=== PATIENT | male | born 1960 | race Caucasian/White ===

== ENCOUNTER → 2021-07-19 16:50 | Outpatient (CLI) | payer OTHER, SELFPAY ==
[2021-07-20 01:25] LABS: Absolute Lymphocyte Count 1.31 X10^3/uL (0.83-4.51); Absolute Neutrophil Count 3.2 X10^3/uL (2.0-7.7); Basophil# 0.08 X10^3/uL; Basophil% 1.5 % (0-1); Eosinophil# 0.31 X10^3/uL; Eosinophils% 5.7 % (0-5); Hematocrit 40.9 % (40-54); Hemoglobin 14.3 g/dL (13.0-16.5); Lymphocyte # 1.31 X10^3/ul (0.83-4.51); Lymphocyte % 24.2 % (19-41); Mean Corpuscular Hgb 34.3 pg (27.0-32.0); Mean Corpuscular Volume 98.1 fL (80-94); Mean Platelet Vol. 9.2 fl (6.2-12.0); Monocyte# 0.51 X10^3/uL; Monocyte% 9.4 % (0-10); NRBC Flagged by Analyzer 0 % (0-5); Platelet Count 238 K/mm3 (150-450); RBC Distribution Width CV 11.7 % (11.6-14.6); Red Blood Count 4.17 M/mm3 (4.6-6.2); White Blood Count 5.4 K/mm3 (4.4-11.0)
[2021-07-20 01:43] LABS: AST(SGOT) 25 U/L (15-37); Alanine Aminotransfer ALT/SGPT 41 U/L (16-61); Alkaline Phosphatase 66 U/L (45-117); Anion Gap 7 (5-15); BUN 17 mg/dL (7-18); BUN/Creat Ratio 16.2 RATIO (10-20); Calcium,Total 8.9 mg/dL (8.5-10.1); Chloride 102 mmol/L (98-107); Cholesterol 167 mg/dL (200); Creatinine, Serum 1.05 mg/dL (0.70-1.30); EST Glomerular Filtration Rate 76 mL/min (>60); Est Glom Filt Rate - Afr Amer 92 mL/min (>60); Globulin 3.9 g/dL (2.2-4.2); Glucose 104 mg/dL (74-106); High Density Lipoprotein 56 mg/dL; PSA,Total - Annual Screen 0.66 ng/mL (0.00-4.00); Protein, Total 7.9 g/dL (6.4-8.2); Sodium Level 138 mmol/L (136-145); Triglycerides 90 mg/dL; Very Low Density Lipoprotein 18 mg/dL (5-40)
== END ==
PROVIDERS: Nurse Practitioner
DX: I10 Essential (primary) hypertension (principal); J01.00 Acute maxillary sinusitis, unspecified; R35.0 Frequency of micturition
CPT/HCPCS: 80053; 80061; 84153; 85025; G0103

== ENCOUNTER → 2022-12-06 | Outpatient (CLI) | payer OTHER, SELFPAY ==
[2022-12-06 22:03] LABS: Absolute Lymphocyte Count 1.32 X10^3/uL (0.83-4.51); Absolute Neutrophil Count 2.8 X10^3/uL (2.0-7.7); Basophil# 0.09 X10^3/uL; Basophil% 1.8 % (0-1); Eosinophil# 0.26 X10^3/uL; Eosinophils% 5.3 % (0-5); Hematocrit 43.1 % (40-54); Lymphocyte # 1.32 X10^3/ul (0.83-4.51); Lymphocyte % 26.7 % (19-41); Mean Corp Hgb Conc 34.8 g/dL (32-36); Mean Corpuscular Hgb 33.3 pg (27.0-32.0); Mean Corpuscular Volume 95.6 fL (80-94); Mean Platelet Vol. 9.1 fl (6.2-12.0); Monocyte# 0.48 X10^3/uL; Monocyte% 9.7 % (0-10); NRBC Flagged by Analyzer 0 % (0-5); Neutrophil # 2.78 X10^3/uL (2.7-7.7); Neutrophil % 56.3 % (47-70); Platelet Count 240 K/mm3 (150-450); RBC Distribution Width CV 11.5 % (11.6-14.6); RBC Distribution Width SD 39.9 fl (35.1-43.9); Red Blood Count 4.51 M/mm3 (4.6-6.2); White Blood Count 4.9 K/mm3 (4.4-11.0)
[2022-12-06 22:57] LABS: ALB/GLOB Ratio 1.1 RATIO (0.9-2.4); AST(SGOT) 32 U/L (15-37); Alanine Aminotransfer ALT/SGPT 47 U/L (16-61); Albumin, Serum 4.2 g/dL (3.2-5.0); Alkaline Phosphatase 78 U/L (45-117); Anion Gap 9 (5-15); BUN 21 mg/dL (7-18); BUN/Creat Ratio 18.9 RATIO (10-20); CRP, High Sensitivity Cardiac 0.46 mg/L; Chloride 103 mmol/L (98-107); Cholesterol 185 mg/dL (200); Creatinine, Serum 1.11 mg/dL (0.70-1.30); EST Glomerular Filtration Rate 71 mL/min (>60); Est Glom Filt Rate - Afr Amer 86 mL/min (>60); Globulin 3.8 g/dL (2.2-4.2); Glucose 109 mg/dL (74-106); High Density Lipoprotein 58 mg/dL; Potassium 3.9 mmol/L (3.5-5.1); Sodium Level 142 mmol/L (136-145); Thyroid Stim Hormone (TSH) 1.56 uIU/mL (0.358-3.74); Triglycerides 109 mg/dL; Very Low Density Lipoprotein 22 mg/dL (5-40)
[2022-12-07 09:58] LABS: Troponin-I HS 15 pg/mL (3.0-78.0)
== END | disposition home or self-care (01) ==
PROVIDERS: Visit Provider Nurse Practitioner
DX: J34.89 Other specified disorders of nose and nasal sinuses (principal); F41.9 Anxiety disorder, unspecified; R07.9 Chest pain, unspecified
CPT/HCPCS: 80053; 80061; 84443; 84484; 85025; 86141; 87070; 87077; 87186; 87205

== ENCOUNTER → 2023-03-21 | Outpatient (CLI) | payer OTHER, SELFPAY ==
[2023-03-23 08:12] LABS: Lyme Scn Total Ab w/Rflx Negative (Negative)
== END | disposition home or self-care (01) ==
PROVIDERS: Visit Provider Nurse Practitioner
DX: S40.869A Insect bite (nonvenomous) of unspecified upper arm, initial encounter (principal); W57.XXXA Bitten or stung by nonvenomous insect and other nonvenomous arthropods, initial encounter
CPT/HCPCS: 86618

== ENCOUNTER → 2025-06-02 | Outpatient (CLI) | payer OTHER, SELFPAY ==
--- OUTSIDE RECORDS SUMMARY | 2025-06-02 21:50 | XMS RPT_ITS | CCD ---
Author Organization [facility] CliniSyma Care Team Providers Care Transport Conductor Name Role Phone Rolando Avi Blanco Primary Care Provider MD Navi Benjamin Attending Provider Navi Benjamin Attending Unavailable Rolando BLADE FILER, Avi Attending Unavailable Rolando BLADE FILER, Avi Attending Unavailable Cárdenas BLIND [email or web address].CARE TEAM COORDINATOR SCHEDULER, Avi L Primary Care Provide r CÁRDENAS, AVI L Primary Care Unavailable CÁRDENAS, AVI L Primary Care Unavailable MARISOL, DONN K Referring Unavaila ble RAMANKEKERAMEL, DONN K Referring Unavaila ble CÁRDENAS, AVI L Primary Care Unavailable CÁRDENAS, AVI L Primary Care Unavailable CÁRDENAS, AVI L Primary Care Unavailable CÁRDENAS, AVI L Primary Care Unavailable CÁRDENAS, AVI L Primary Care Unavailable CÁRDENAS, AVI L Primary Care Unavailable CÁRDENAS, AVI L Primary Care Unavailable CÁRDENAS, AVI L Primary Care Unavailable CÁRDENAS, AVI L Primary Care Unavailable CÁRDENAS, AVI L Primary Care Unavailable CÁRDENAS, AVI L Primary Care Unavailable CÁRDENAS, AVI L Primary Care Unavailable CÁRDENAS, AVI L Primary Care Unavailable CÁRDENAS, AVI L Primary Care Unavailable CÁRDENAS, AVI L Primary Care Unavailable CÁRDENAS, AVI L Primary Care Unavailable CÁRDENAS, AVI L Primary Care Unavailable CÁRDENAS, AVI L Primary Care Unavailable CÁRDENAS, AVI L Primary Care Unavailable CÁRDENAS, AVI L Primary Care Unavailable CÁRDENAS, AVI Primary Care Unavailable MARISOL FRANKS, DONN Attending Unavail able CÁRDENAS, AVI Primary Care Unavailable CÁRDENAS, AVI Primary Care Unavailable MARISOL FRANKS, DONN Attending Unavail able CÁRDENAS, AVI Primary Care Unavailable CÁRDENAS, AVI Primary Care Unavailable Allergies Allergy Classification Reported Allergen(s) Allergy Type Date of Onset Reaction(s) Facility (1 source) Environmental Allergies: Uncoded; Translations: [Environmental Allergies: Uncoded] Propensity to adverse reactions (disorder) [facility] Repository Medications Current Medications Medication Drug Class(es) Dates Sig (Normalized) Sig (Original) cimetidine 200 mg oral tablet (2 sources) Histamine-2 Receptor Antagonist Start: 11-24-2020 take 1 tablet by mouth at bedtime Cimetidine (Tagamet Hb) 200 mg tablet Active 200 MG PO before meals and at bedtime November 24, 2020 1:00am doxycycline hyclate 100 mg oral capsule (3 sources) Tetracycline-clas s Drug Start: 03-21-2023 take 100 mg by mouth twice daily Doxycycline Hyclate Active 100 MG PO TWICE A DAY March 21, 2023 12:00am Start: 11-24-2020 End: 07-19-2021 take 100 mg by mouth twice daily Doxycycline Hyclate Discontinued 100 MG PO TWICE A DAY November 24, 2020 1:00am July 19, 2021 5:13pm hydrOXYzine hydrochloride 10 mg oral tablet (2 sources) Antihistamine Start: 12-06-2022 take 10 mg by mouth three to four times daily Hydroxyzine Hcl Active 10 MG PO 3 to 4 times per day 45 December 06, 2022 1:00am meclizine hydrochloride 12.5 mg oral tablet (2 sources) Antiemetic Start: 03-29-2022 take 12.5 mg by mouth three times daily Meclizine Active 12.5 MG PO THREE TIMES A DAY 60 March 29, 2022 12:00am melatonin 10 mg oral capsule (2 sources) Start: 01-20-2019 take 10 mg by mouth at bedtime Melatonin Active 10 MG PO BEDTIME January 20, 2019 12:00am Mupirocin (2 sources) RNA Synthetase Inhibitor Antibacterial Start: 12-07-2022 Mupirocin Active 1 APPLIC TOPICAL THREE TIMES A DAY December 07, 2022 1:00am Start: 12-07-2022 Mupirocin Acti ve 1 APPLIC TOPICAL THREE TIMES A DAY December 07, 2022 12:00am Completed/Discontinued Medications Medication Drug Class(es) Dates Sig (Normalized) Sig (Original) ALPRAZolam 0.5 mg oral tablet (14 sources) Benzodiazepine Start: 01-20-2019 End: 09-04-2022 take 0.5 mg by mouth twice daily Alprazolam Discontinued 0.5 MG PO TWICE A DAY 60 January 30, 2022 5:42pm September 04, 2022 5:28pm amLODIPine 5 mg oral tablet (8 sources) Dihydropyridine Calcium Channel Óscar Start: 01-20-2019 End: 01-30-2022 take 5 mg by mouth once daily Amlodipine Discontinued 5 MG PO DAILY July 19, 2021 5:14pm January 30, 2022 5:43pm amoxicillin 875 mg / clavulanate 125 mg oral tablet (14 sources) Penicillin-class Antibacterial Start: 11-20-2022 End: 03-22-2023 take 1 tablet by mouth twice daily Amoxicillin-Pot Clavulanate Discontinued 1 TABLET PO TWICE A DAY November 20, 2022 1:00am March 22, 2023 12:10pm Start: 05-15-2022 End: 09-04-2022 take 1 tablet by mouth twice daily Amoxicillin-Pot Clavulanate Discontinued 1 TABLET PO TWICE A DAY May 15, 2022 12:00am September 04, 2022 5:27pm Start: 05-23-2021 End: 03-29-2022 take 1 tablet by mouth twice daily Amoxicillin-Pot Clavulanate Discontinued 1 TABLET PO TWICE A DAY January 30, 2022 5:42pm March 29, 2022 6:42pm Start: 09-19-2019 End: 06-29-2020 take 1 tablet by mouth twice daily Amoxicillin-Pot Clavulanate Discontinued 1 TABLET PO TWICE A DAY September 19, 2019 1:00am June 29, 2020 6:16pm Start: 01-20-2019 End: 09-19-2019 take 1 tablet by mouth twice daily Amoxicillin-Pot Clavulanate Discontinued 1 TABLET PO TWICE A DAY January 20, 2019 12:00am September 19, 2019 5:36pm atorvastatin 10 mg oral tablet (8 sources) HMG-CoA Reductase Inhibitor Start: 03-13-2019 End: 01-30-2022 Atorvastatin Discontinued 10 MG PO .3 x a week 36 90 July 19, 2021 5:14pm January 30, 2022 5:43pm benzonatate 200 mg oral capsule (2 sources) Non-narcotic Antitussive Start: 01-20-2019 End: 09-19-2019 take 200 mg by mouth three times daily Benzonatate Discontinued 200 MG PO THREE TIMES A DAY 60 January 20, 2019 12:00am September 19, 2019 5:36pm cefuroxime 500 mg oral tablet (2 sources) Cephalosporin Antibacterial Start: 03-29-2022 End: 05-15-2022 take 500 mg by mouth twice daily Cefuroxime Axetil Discontinued 500 MG PO TWICE A DAY 20 March 29, 2022 12:00am May 15, 2022 3:27pm lisinopril 10 mg oral tablet (8 sources) Angiotensin Converting Enzyme Inhibitor Start: 01-20-2019 End: 01-30-2022 take 10 mg by mouth once daily Lisinopril Discontinued 10 MG PO DAILY 90 July 19, 2021 5:14pm January 30, 2022 5:43pm oseltamivir 75 mg oral capsule (2 sources) Neuraminidase Inhibitor Start: 01-20-2019 End: 01-25-2019 take 75 mg by mouth twice daily Oseltamivir Discontinued 75 MG PO TWICE A DAY 10 January 20, 2019 12:00am January 25, 2019 12:11am predniSONE 10 mg oral tablet (2 sources) Start: 05-13-2019 End: 05-17-2019 Prednisone Discontinued 20 MG PO TWICE A DAY 30 May 13, 2019 12:00am May 17, 2019 12:07am 2 po bid 4D,1 po bid for 4 D, 1 po qd for 4 D 1/2 po qd for 2 days promethazine hydrochloride 12.5 mg oral tablet (8 sources) Phenothiazine Start: 01-20-2019 End: 11-20-2022 take 12.5 mg by mouth every six hours Promethazine Discontinued 12.5 MG PO EVERY 6 HOURS 60 May 15, 2022 3:30pm November 20, 2022 6:08pm Problems Active Problems Problem Classification Problem Date Documented Date Episodic/Chronic Anxiety disorders (2 sources) Anxiety; Translations: [Anxiety disorder, unspecified] 03-13-2019 Chronic Chronic obstructive pulmonary disease and bronchiectasis (2 sources) Bronchitis; Translations: [Bronchitis, not specified as acute or chronic] 11-24-2020 Episodic Conditions associated with dizziness or vertigo (2 sources) Dizziness; Translations: [Dizziness and giddiness] 03-29-2022 Episodic Coronary atherosclerosis and other heart disease (1 source) Coronary arteriosclerosis after percutaneous coronary angioplasty; Translations: [Atherosclerotic heart disease of [place] coronary artery without angina pectoris] 08-30-2023 Chronic Coronary atherosclerosis and other heart disease (7 sources) Patient post percutaneous transluminal coronary angioplasty; Translations: [Coronary angioplasty status] Onset: 10-17-2023 09-07-2023 Episodic Disorders of lipid metabolism (2 sources) Hyperlipidemia; Translations: [Hyperlipidemia, unspecified] 07-20-2021 Chronic Esophageal disorders (2 sources) Gastroesophageal reflux disease; Translations: [Gastro-esophageal reflux disease without esophagitis] 01-30-2022 Chronic Essential hypertension (2 sources) Hypertensive disorder; Translations: [Essential (primary) hypertension] 09-19-2019 Chronic Fever of unknown origin (2 sources) Fever; Translations: [Fever, unspecified] 01-20-2019 Episodic Influenza (2 sources) Influenza due to Influenza A virus; Translations: [Influenza due to other identified influenza virus with other respiratory manifestations] 01-20-2019 Episodic Nonspecific chest pain (4 sources) Chest pain on exertion; Translations: [Chest pain, unspecified] Onset: 02-27-2023 12-06-2022 Episodic Other connective tissue disease (2 sources) Hand pain; Translations: [Pain in left hand] 06-29-2020 Episodic Other connective tissue disease (2 sources) Tendinitis of right rotator cuff; Translations: [Other shoulder lesions, right shoulder] 12-08-2022 Episodic Other ear and sense organ disorders (2 sources) Pain of ear structure; Translations: [Otalgia, unspecified ear] 05-23-2021 Episodic Other skin disorders (2 sources) Localized swelling of left hand; Translations: [Localized swelling, mass and lump, left upper limb] 06-29-2020 Episodic Other skin disorders (1 source) Eruption; Translations: [Rash and other nonspecific skin eruption] 03-22-2023 Episodic Other upper respiratory disease (2 sources) Lesion of nose; Translations: [Other specified disorders of nose and nasal sinuses] 12-06-2022 Episodic Other upper respiratory infections (2 sources) Maxillary sinusitis; Translations: [Chronic maxillary sinusitis] 11-25-2020 Chronic Otitis media and related conditions (4 sources) Otitis media; Translations: [Otitis media, unspecified, right ear] 01-20-2019 Episodic Poisoning by nonmedicinal substances (2 sources) Wasp sting; Translations: [Toxic effect of venom of wasps, accidental (unintentional), initial encounter] 05-14-2019 Episodic Residual codes; unclassified (2 sources) Generalized aches and pains; Translations: [Pain, unspecified] 05-13-2019 Episodic Superficial injury; contusion (2 sources) Tick bite; Translations: [Insect bite (nonvenomous) of unspecified upper arm, initial encounter] Onset: 05-04-2023 03-21-2023 Episodic Past or Other Problems Problem Classification Problem Date Documented Da te Episodic/Chronic Other upper respiratory disease (1 source) Other specified disorders of nose and nasal sinuses; Translations: [Other specified disorders of nose and nasal sinuses] Onset: 12-15-2022 Episodic Unclassified (2 sources) ELEVATED BP 05-22-2022 Unclassified (2 sources) HERNIA BILAT 05-22-2022 Results Test Name Value Interpretation Reference Range Facility [facility] Office-Progress Notes-Pr ovideron 01-02-2025 [facility] Office-Progress Notes-Provider MARIELENA VILLALTA :1960 Registration Date:12/31/2024 Chief Complaint: 6 MONTH OV CHECK UP History of Present Illness: Disclaimer: The content of this note was generated by an artificial intelligence (AI) language model version 25.01.0.0 The patient is a 64-year-old male with CAD HTN and HLD with long-term Lisinopril use, presenting for a 6-month check-up. Fatigue The patient reports feeling slightly tired but does not consider it a significant issue. He denies any swelling of the legs. He continues to maintain an active lifestyle and exercises regularly. Medication Side Effects The patient has been taking Lisinopril for approximately eight to nine years. He mentions experiencing occasional swelling of his mouth and throat, which he suspects might be related to the medication. This swelling occurs infrequently and is not significantly bothersome to him. Exercise Routine and Diet The patient maintains an active lifestyle, regularly exercising and using the treadmill for about 20 minutes, covering a mile each session. He tries to watch his diet, avoiding junk food as much as possible. He acknowledges that stress affects his ability to maintain a strict diet. Blood Pressure The patient's blood pressure is well-controlled, with a reading of 114/74 mmHg during the visit. He mentions that his blood pressure is also monitored at work. Review of Systems: Constitutional: Positive for tiredness. ENT: Positive for swelling of mouth and throat. Physical Exam: Vitals & Measurements Temperature Temporal (F): 98.5 degF (12/31/24 15::00) Apical Heart Rate: 68 bpm (12/31/24::) Height/Length Measured: 173 cm (12/31/24::) Weight Measured: 69 kg (12/31/24::) Body Mass Index Measured: 23.05 kg/m2 (12/31/24::) Weight Measured - lbs2: 153 lb (12/31/24::) Height/Length Measured - in2: 69 in (12/31/24::) Body Mass Index Measured English2: 22.59 kg/m2 (12/31/24::) BSA: 1.84 m2 (12/31/24 15::00) Ht/Wt Measurement Refused by Patient?2: No (12/31/24::) NECK: JVP is not elevated: Good carotid pulses and no bruit CVS; Normal heart sounds. No murmur and no gallop. No rub LUNGS: No rhonchi and no wheeze: Clear breath sounds ADOMEN: Benign EXTREMITIES: Good distal pulses. No edema of legs Medication Reconciliation: What How Much When Instructions Unchanged ALPRAZolam (Xanax 0.5 mg oral tablet) 1 Tabs Oral DAILY Unchanged amLODIPine (amLODIPine 5 mg oral tablet) 1 Tabs Oral DAILY Unchanged aspirin 81 Milligram Oral DAILY Unchanged atorvastatin (atorvastatin 40 mg oral tablet) 1 Tabs Oral DAILY Unchanged cimetidine = tagamet (Tagamet HB 200 mg oral tablet) 1 Tabs Oral DAILY Unchanged diphenhydrAMINE (Benadryl) 25 Milligram Oral DAILY as needed for as needed for insomnia Unchanged hydrOXYzine (hydrOXYzine hydrochloride 10 mg oral tablet) 1 Tabs Oral FOUR TIMES A DAY as needed for for anxiety Unchanged lisinopril (lisinopril 10 mg oral tablet) 1 Tabs Oral DAILY Unchanged meclizine = Antivert (meclizine 12.5 mg oral tablet) 1 Tabs Oral THREE TIMES A DAY as needed for as needed for motion sickness Unchanged melatonin 5 Milligram Oral AT BEDTIME Unchanged metoprolol (metoprolol succinate 25 mg oral capsule, extended release) 1 Capsules Oral DAILY Unchanged multivitamin (Multi Vitamin+) 1 tab Oral DAILY Unchanged polycarbophil (Fiber Tabs) 1,250 Milligram Oral DAILY Assessment/Plan: Patient is a 64-year-old male with hypertension and hyperlipidemia presenting today for routine follow-up. This Visit Diagnosis 1.CAD:I25.10 Prior intervention to LAD and RCA: on aspirin 2.HTN: on amlodipine,lisinopril - Continue monitoring blood pressure regularly. - Patient reports occasional swelling of mouth and throat, likely due to lisinopril. - Advised patient to report if swelling becomes bothersome for potential medication switch. 3.Hyperlipidemia: on lipitor - Plan to check cholesterol levels at the next visit in six months. 4.Continue medications as mentioned above with specified doses Problem List/Past Medical History: Ongoing Angina of effort CAD (coronary artery disease) Encounter for screening colonoscopy HLD (hyperlipidemia) HTN (hypertension) Hyperlipidemia Procedure/Surgical History: Intravascular Ultrasound-Coronary Artery.: 07/20/23 Drug Eluting Stent- Coronary Artery.: 07/20/23 Percutaneous Coronary Angioplasty, Drug Eluting Stent- Chronic Total Occlusion.: 07/20/23 Left Heart Catheterization, left ventriculogram.: 07/13/23 Colonoscopy.: 03/26/20 Allergies: No Known Allergies Social History: Alcohol Use:Current Type:Beer Other Name:caffiene Substance Abuse - Denies Substance Abuse Tobacco Use:Never smoker Family History: A-fib..: Mother. CABG - Coronary artery bypass graft: Father. Heart disease: Father. Stroke..: Mother. Valvular heart disea (more content not included)... Normal [facility] Provider Letter - Ambulatory on 01-02-2025 Provider Letter - Ambulatory AVI CÁRDENAS, [address] [facility] [address] [place] [id number] RE: MARIELENA KAYLA - 1960 12/31/2024 Dear AVI CÁRDENAS This document is confidential and intended solely for the use of the individual or entity to which they are addressed. If you are not the named addressee, please disregard and do not disseminate, distribute or copy this information. If you are not the intended recipient you are notified that any disclosure of this information and its contents are strictly prohibited. If you have any questions about this document, please contact the office. Sincerely, Veronica Machado MA [facility] The following document(s) were included in the letter: December 31, 2024 19:25:40 EDT - (12/31/2024) *.AMB Office Visit Note Normal [facility] Phone Msgon 11-05-2024 Phone Msg Entered by SHAYY SQUIRES CNP on November 05, 2024 13:07:16 EST From: SHAYY SQUIRES CNP To: [id number] Sent: 11/05/2024 13:07:16 EST Subject: Medication Management Submitted: Complete:atorvastatin (atorvastatin 40 mg oral tablet) Signed by SHAYY SQUIRES CNP 11/05/2024 13:07:00 EST Approved atorvastatin (atorvastatin 40 mg tablet) TAKE 1 TABLET BY MOUTH DAILY Qty: 30 tabs Days Supply: 30 Refills: 3 Substitutions Allowed Route To Pharmacy - [id number] From: [id number] To: SHAYY SQUIRES CNP Sent: October 30, 2024 6:52:37 PM EST Subject: Medication Management Due: October 31, 2024 12:27:59 AM EST On Hold Pending Signature Drug: atorvastatin (atorvastatin 40 mg oral tablet), 1 tabs ORAL DAILY Quantity: 30 tabs Days Supply: 0 Refills: 2 Substitutions Allowed Notes from Pharmacy: Dispensed Drug: atorvastatin (atorvastatin 40 mg oral tablet), TAKE 1 TABLET BY MOUTH DAILY Quantity: 30 tabs Days Supply: 30 Refills: 3 Substitutions Allowed Notes from Pharmacy: [facility] AMB CARD Physician Progress Noteon 07-02-2024 AMB CARD Physician Progress Note MARIELENA VILLALTA :1960 Registration Date:07/02/2024 Chief Complaint CAD, HTN History of Present Illness Mr. Villalta is here for FUV for coronary artery disease, hypertension and hyperlipidemia. He weighs 150 pounds and exercises every other day religiously. Blood pressure is 98/60. He has some mild lightheadedness during exercise. He is in sinus rhythm. No chest pain jaw pain shoulder pain no orthopnea no nocturnal dyspnea. He has been watching his diet carefully. Lipid profile has been stable. He had LAN/WAN ENGINEER PCI of the LAD, CHON from the ostium to mid LAD & mid right coronary in June 2023. Will decrease amlodipine in half and monitor the lightheadedness. Physical Exam Vitals & Measurements Temperature Temporal (F): 98.6 degF (07/02/24 13:46:00) Height/Length Measured: 163 cm (07/02/24 13:46:00) Weight Measured: 69 kg (07/02/24 13:46:00) Body Mass Index Measured: 25.97 kg/m2 (07/02/24 13:46:00) Weight Measured - lbs2: 152 lb (07/02/24 13:46:00) Height/Length Measured - in2: 64 in (07/02/24 13:46:00) Body Mass Index Measured English2: 26.09 kg/m2 (07/02/24 13:46:00) BSA: 1.76 m2 (07/02/24 13:46:00) Ht/Wt Measurement Refused by Patient?2: No (07/02/24 13:46:00) Depression Screening Scores Initial Depression Screen Score: 0 (07/02/24 13:46:00) Fall Risk Assessment Is the patient ambulatory (mobile): Yes (07/02/24 13:46:00) Have you had a fall within the past: No (07/02/24 13:46:00) Have you had 2 or more falls in the past: No (07/02/24 13:46:00) NECK: JVP is not elevated. Good carotid pulses and no bruit. CVS: Normal heart sounds. No murmur and no gallop. No rub. LUNGS: No rhonchi and no wheeze. Clear breath sounds. ABDOMEN: Benign. EXTREMITIES: Good distal pulses. No edema of legs. Medication Reconciliation What How Much When Instructions Unchanged ALPRAZolam (Xanax 0.5 mg oral tablet) 1 Tabs Oral DAILY Unchanged amLODIPine (amLODIPine 5 mg oral tablet) 1 Tabs Oral DAILY Unchanged aspirin 81 Milligram Oral DAILY Unchanged atorvastatin (atorvastatin 40 mg oral tablet) 1 Tabs Oral DAILY Unchanged cimetidine = tagamet (Tagamet HB 200 mg oral tablet) 1 Tabs Oral DAILY Unchanged clopidogrel (Plavix 75 mg oral tablet) 1 Tabs Oral DAILY Unchanged diphenhydrAMINE (Benadryl) 25 Milligram Oral DAILY as needed for as needed for insomnia Unchanged hydrOXYzine (hydrOXYzine hydrochloride 10 mg oral tablet) 1 Tabs Oral FOUR TIMES A DAY as needed for for anxiety Unchanged lisinopril (lisinopril 10 mg oral tablet) 1 Tabs Oral DAILY Unchanged meclizine = Antivert (meclizine 12.5 mg oral tablet) 1 Tabs Oral THREE TIMES A DAY as needed for as needed for motion sickness Unchanged melatonin 5 Milligram Oral AT BEDTIME Unchanged metoprolol (metoprolol succinate 25 mg oral capsule, extended release) 1 Capsules Oral DAILY Unchanged metoprolol (metoprolol succinate 25 mg oral tablet, extended release) 1 Tabs Oral DAILY Unchanged multivitamin (Multi Vitamin+) 1 tab Oral DAILY Unchanged polycarbophil (Fiber Tabs) 1,250 Milligram Oral DAILY Unchanged ticagrelor (Brilinta (ticagrelor) 90 mg oral tablet) 1 Tabs Oral TWICE A DAY Assessment/Plan This Visit Diagnosis 1. CAD (coronary artery disease) I25.10 CHON from the ostium to mid LAD & mid right coronary . OK to stop Brillinta at the end of the month. Ordered: 2. HTN (hypertension) I10 Well controlled on lisinopril, amlodipine. Given lower BP and lightheadedness with exercise will decrease amlodipine to 2.5mg. Ordered: 3. HLD (hyperlipidemia) E78.5 Tolerating atorvastatin. FUV in 6 months. Copy to PCP, Avi Cárdenas. Ordered: AMB Office/Outpt Est Pt Mod MDM / 30 min [id number], 07/02/2024 13:59:00 EDT, CAD (coronary artery disease) / HTN (hypertension) / HLD (hyperlipidemia) Problem List/Past Medical History Ongoing Angina of effort CAD (coronary artery disease) Encounter for screening colonoscopy HLD (hyperlipidemia) HTN (hypertension) Hyperlipidemia Procedure/Surgical History Intravascular Ultrasound-Coronary Artery.: 07/20/23 Drug Eluting Stent- Coronary Artery.: 07/20/23 Percutaneous Coronary Angioplasty, Drug Eluting Stent- Chronic Total Occlusion.: 07/20/23 Left Heart Catheterization, left ventriculogram.: 07/13/23 Colonoscopy.: 03/26/20 Allergies No Known Allergies Social History Alcohol Use:Current Type:Beer Other Name:caffiene Substance Abuse - Denies Substance Abuse Tobacco Use:Never smoker Family History A-fib..: Mother. CABG - Coronary artery bypass graft: Father. Heart disease: Father. Stroke..: Mother. Valvular heart disease: Mother. Health Status Family Member(s) Care Team Primary Care Physician AVI CÁRDENAS [phone] Attending Physician MARISOL FRANKS, DONN [phone] . Health Maintenance Pending (in the next year) Due Prostate Cancer Screening due 07/02/24 and every 1 y (more content not included)... Normal [facility] Ambulatory Clinical Summaryo n 07-02-2024 Ambulatory Clinical Summary MARIELENA VILLALTA :1960 Registration Date:07/02/2024 Ambulatory Visit Instructions Your Care Team Attending Physician - DONN MINOR MD Primary Care Physician - AVI CÁRDENAS Procedures Performed Percutaneous Coronary Angioplasty, Drug Eluting Stent- Chronic Total Occlusion. (07/20/2023) Intravascular Ultrasound-Coronary Artery. (07/20/2023) Drug Eluting Stent- Coronary Artery. (07/20/2023) Left Heart Catheterization, left ventriculogram. (07/13/2023) Colonoscopy. (03/26/2020) Discharge Vitals Temperature (Temporal Artery) 98.6 DEGF Height 64.17 in (163 cm) Weight 152.14 lb (69 kg) BMI 25.97 Temperature Temporal (F): 98.6 degF (07/02/24 13:46:00) Height/Length Measured: 163 cm (07/02/24 13:46:00) Weight Measured: 69 kg (07/02/24 13:46:00) Body Mass Index Measured: 25.97 kg/m2 (07/02/24 13:46:00) Weight Measured - lbs2: 152 lb (07/02/24 13:46:00) Height/Length Measured - in2: 64 in (07/02/24 13:46:00) Body Mass Index Measured English2: 26.09 kg/m2 (07/02/24 13:46:00) BSA: 1.76 m2 (07/02/24 13:46:00) Ht/Wt Measurement Refused by Patient?2: No (07/02/24 13:46:00) What to do next Scheduled Follow-Up Appointments Appointment Type Reason for visit Day With Date Time Where City&State Established Patient 1 6 MONTH CHCEK UP Sunday Donn Minor MD December 31, 2024 03:00 pm EDT CARD [place] [id number] [facility] [address] [facility] ZIP:[id number] Medications What How Much When Instructions Unchanged ALPRAZolam (Xanax 0.5 mg oral tablet) 1 Tabs Oral DAILY Unchanged amLODIPine (amLODIPine 5 mg oral tablet) 1 Tabs Oral DAILY Unchanged aspirin 81 Milligram Oral DAILY Unchanged atorvastatin (atorvastatin 40 mg oral tablet) 1 Tabs Oral DAILY Unchanged cimetidine = tagamet (Tagamet HB 200 mg oral tablet) 1 Tabs Oral DAILY Unchanged clopidogrel (Plavix 75 mg oral tablet) 1 Tabs Oral DAILY Unchanged diphenhydrAMINE (Benadryl) 25 Milligram Oral DAILY as needed for as needed for insomnia Unchanged hydrOXYzine (hydrOXYzine hydrochloride 10 mg oral tablet) 1 Tabs Oral FOUR TIMES A DAY as needed for for anxiety Unchanged lisinopril (lisinopril 10 mg oral tablet) 1 Tabs Oral DAILY Unchanged meclizine = Antivert (meclizine 12.5 mg oral tablet) 1 Tabs Oral THREE TIMES A DAY as needed for as needed for motion sickness Unchanged melatonin 5 Milligram Oral AT BEDTIME Unchanged metoprolol (metoprolol succinate 25 mg oral capsule, extended release) 1 Capsules Oral DAILY Unchanged metoprolol (metoprolol succinate 25 mg oral tablet, extended release) 1 Tabs Oral DAILY Unchanged multivitamin (Multi Vitamin+) 1 tab Oral DAILY Unchanged polycarbophil (Fiber Tabs) 1,250 Milligram Oral DAILY Unchanged ticagrelor (Brilinta (ticagrelor) 90 mg oral tablet) 1 Tabs Oral TWICE A DAY Allergies No Known Allergies Problems Ongoing - Any problem that you are currently receiving treatment for. Angina of effort CAD (coronary artery disease) Encounter for screening colonoscopy HLD (hyperlipidemia) HTN (hypertension) Hyperlipidemia Common Emergency Awareness Tips IS IT A STROKE? Act FAST and Check for these signs: FACE Does the face look uneven? ARM Does one arm drift down? SPEECH Does their speech sound strange? TIME Call at any sign of stroke Heart Attack Signs Chest discomfort: Most heart attacks involve discomfort in the center of the chest and lasts more than a few minutes, or goes away and comes back. It can feel like uncomfortable pressure, squeezing, fullness or pain. Discomfort in upper body: Symptoms can include pain or discomfort in one or both arms, back, neck, jaw or stomach. Shortness of breath: With or without discomfort. Other signs: Breaking out in a cold sweat, nausea, or lightheaded. Remember, MINUTES DO MATTER. If you experience any of these heart attack warning signs, call to get immediate medical attention! Normal [facility] Comprehensive Intake - Texto n 07-02-2024 Comprehensive Intake - Text Comprehensive Intake Entered On: 07/02/2024 13:47 EDT Performed On: 07/02/2024 13:46 EDT by Veronica Machado MA Summary Chief Complaint : CAD, HTN Advance Directive : No Bladder Control Issues? : No Urine Leakage? : No Presence or absence of urinary incontinence assessed : Yes CPT-II Medication list doc'd in medical record : Yes Influenza immunization administered or previously received : Yes Pneumococcal vaccine administered or previously received : Yes Veronica Machado MA - 07/02/2024 13:46 EDT Measurements Ht/Wt Measurement Refused by Patient? : No Weight Measured : 69 kg(Converted to: 152 lb 2 oz, 152.119 lb) Height/Length Measured : 163 cm(Converted to: 5 ft 4 in, 64.17 in) Body Mass Index Measured : 25.97 kg/m2 Body Mass Index documented : Yes Weight Measured - lbs : 152 lb(Converted to: 152 lb 0 oz, 69 kg) Height/Length Measured - in : 64 in(Converted to: 5 ft 4 in, 163 cm) Body Mass Index Measured Slovenian : 26.09 kg/m2 BSA Slovenian : 1.76 m2 Tammy Machado MAh - 07/02/2024 13:46 EDT Vitals Require BP : No Temperature Temporal (F) : 98.6 degF(Converted to: 37 degC) Pain Present : No actual or suspected pain Pain : 0 Pain severity quantified : No pain present Tammy Machado MAh - 07/02/2024 13:46 EDT Infection Screening Travel outside [place] within past 21 days : No Positive COVID test in the last 10 days? : No Exposure to and/or close contact with a person who has a laboratory-confirmed COVID test within the last 48 hours. : No Fe Machado MAorah - 07/02/2024 13:46 EDT Depression Screening Is patient currently : None of the Below Feeling Down, Depressed, Hopeless : Not at all Little Interest - Pleasure in Activities : Not at all Initial Depression Screen Score : 0 Depression Screening Score 0 : No Fe Machado MAorah - 07/02/2024 13:46 EDT Problems (As Of: 07/02/2024 13:47:32 EDT) Problems(Active) Angina of effort (SNOMED CT :561606739 ) Name of Problem: Angina of effort ; Recorder: DONN MINOR MD; Confirmation: Confirmed ; Classification: Medical ; Code: [id number] ; Contributor System: [employer] ; Last Updated: 01/07/2023 16:41 EDT ; Life Cycle Date: 01/07/2023 ; Life Cycle Status: Active ; Responsible Provider: DONN MINOR MD; Vocabulary: SNOMED CT CAD (coronary artery disease) (SNOMED CT :77401305 ) Name of Problem: CAD (coronary artery disease) ; Recorder: DONN MINOR MD; Confirmation: Confirmed ; Classification: Medical ; Code: [id number] ; Contributor System: [employer] ; Last Updated: 08/08/2023 19:28 EDT ; Life Cycle Date: 08/08/2023 ; Life Cycle Status: Active ; Responsible Provider: DONN MINOR MD; Vocabulary: SNOMED CT Encounter for screening colonoscopy (SNOMED CT :894234290 ) Name of Problem: Encounter for screening colonoscopy ; Recorder: ROB HPOSON MD; Confirmation: Confirmed ; Classification: Medical ; Code: [id number] ; Contributor System: PowerChart ; Last Updated: 12/23/2019 14:01 EST ; Life Cycle Date: 12/23/2019 ; Life Cycle Status: Active ; Responsible Provider: ROB HOPSON MD; Vocabulary: SNOMED CT HLD (hyperlipidemia) (SNOMED CT :49222251 ) Name of Problem: HLD (hyperlipidemia) ; Recorder: DONN MINOR MD; Confirmation: Confirmed ; Classification: Medical ; Code: [id number] ; Contributor System: [employer] ; Last Updated: 06/20/2021 06:21 EDT ; Life Cycle Date: 06/20/2021 ; Life Cycle Status: Active ; Responsible Provider: DONN MINOR MD; Vocabulary: SNOMED CT HTN (hypertension) (SNOMED CT :1097749047 ) Name of Problem: HTN (hypertension) ; Recorder: DONN MINOR MD; Confirmation: Confirmed ; Classification: Medical ; Code: [id number] ; Contributor System: PowerChart ; Last Updated: 12/31/2016 15:14 EDT ; Life Cycle Date: 12/31/2016 ; Life Cycle Status: Active ; Responsible Provider: DONN MINOR MD; Vocabulary: SNOMED CT Hyperlipidemia (SNOMED CT :309184299 ) Name of Problem: Hyperlipidemia ; Recorder: DONN MINOR MD; Confirmation: Confirmed ; Classification: Medical ; Code: [id number] ; Contributor System: PowerChart ; Last Updated: 12/31/2016 15:15 EDT ; Life Cycle Date: 12/31/2016 ; Life Cycle Status: Active ; Responsible Provider: DONN MINOR MD; Vocabulary: SNOMED CT Falls Risk Assessment Is the patient ambulatory (mobile) : Yes Have you had 2 or more falls in the past year : No Have you had a fall within the past year that has caused an injury : No Patient screen for fall risk : no falls in last year OR 1 fall with no injury in last year Veronica Machado MA - 07/02/2024 13:46 EDT Normal [facility] Phone Msgon 05-16-2024 Phone Msg - From: Delmy Koch To: SHAW NGUYEN SHAYY; Sent: 05/15/2024 09:26:17 EDT Subject: RX Caller Name: MARIELENA VILLALTA; Caller Number: Lata , B [phone] Medication List Active Medications Prescribed amLODIPine: 5 mg = 1 tabs, ORAL, DAILY, 90 tabs, 3 Refill(s). clopidogrel: 75 mg = 1 tabs, ORAL, DAILY, 90 tabs, 5 Refill(s). metoprolol: 25 mg = 1 tabs, ORAL, DAILY, 90 tabs, 3 Refill(s). metoprolol: 25 mg = 1 caps, ORAL, DAILY, 30 caps, 5 Refill(s). ticagrelor: 90 mg = 1 tabs, ORAL, BID, 180 tabs, 3 Refill(s). Documented ALPRAZolam: 0.5 mg = 1 tabs, ORAL, DAILY, 0 Refill(s). aspirin: 81 mg, ORAL, DAILY, 0 Refill(s). atorvastatin: 40 mg = 1 tabs, ORAL, DAILY, 30 tabs, 0 Refill(s). cimetidine = tagamet: 200 mg = 1 tabs, ORAL, DAILY, 0 Refill(s). diphenhydrAMINE: 25 mg, ORAL, DAILY, PRN: as needed for insomnia, 0 Refill(s). hydrOXYzine: 10 mg = 1 tabs, ORAL, QID, PRN: for anxiety, 80 tabs, 0 Refill(s). lisinopril: 10 mg = 1 tabs, ORAL, DAILY, 90 tabs, 0 Refill(s). meclizine = Antivert: 12.5 mg = 1 tabs, ORAL, TID, PRN: as needed for motion sickness, 30 tabs, 0 Refill(s). melatonin: 5 mg, ORAL, QHS, 0 Refill(s). multivitamin: 1 tab, ORAL, DAILY, 0 Refill(s). polycarbophil: 1,250 mg, ORAL, DAILY, 0 Refill(s). Medications Inactivated in the Last 72 Hours No medications found. DRUG MATEO MORGAN, ATORVASTATIN 40MG done Normal [facility] Office-Progress Notes-Pr amy 01-11-2024 [facility] Office-Progress Notes-Provider MARIELENA VILLALTA :1960 Registration Date:01/01/2024 Chief Complaint CAD, HTN History of Present Illness This is a follow-up for Mr. Villalta and he has coronary disease hypertension and hyperlipidemia. He weighs 150 pounds and blood pressure is 114/84 and he is in sinus rhythm. No chest pain jaw pain shoulder pain no orthopnea no nocturnal dyspnea. He has been watching his diet carefully. Lipid profile has been stable. He is rather preoccupied and seems to be under stress taking care of his . He is very compliant with his diet and medications. Physical Exam Vitals & Measurements Temperature Temporal (F): 98.3 degF (01/01/24 15:31:00) Height/Length Measured: 175 cm (01/01/24 15:31:00) Weight Measured: 69 kg (01/01/24 15:31:00) Body Mass Index Measured: 22.53 kg/m2 (01/01/24 15:31:00) Weight Measured - lbs2: 152 lb (01/01/24 15:31:00) Height/Length Measured - in2: 69 in (01/01/24 15:31:00) Body Mass Index Measured English2: 22.44 kg/m2 (01/01/24 15:31:00) BSA: 1.83 m2 (01/01/24 15:31:00) Ht/Wt Measurement Refused by Patient?2: No (01/01/24 15:31:00) Depression Screening Scores No Depression Screening data available for this encounter. Fall Risk Assessment No Falls Risk Assessment data available for this encounter. NECK: JVP is not elevated: Good carotid pulses and no bruit CVS; Normal heart sounds. No murmur and no gallop. No rub LUNGS: No rhonchi and no wheeze: Clear breath sounds ADOMEN: Benign EXTREMITIES: Good distal pulses. No edema of legs Medication Reconciliation What How Much When Instructions Changed metoprolol (metoprolol succinate 25 mg oral capsule, extended release) 1 Capsules Oral DAILY Changed metoprolol (metoprolol succinate 25 mg oral tablet, extended release) 1 Tabs Oral DAILY Pickup at [facility] Unchanged ALPRAZolam (Xanax 0.5 mg oral tablet) 1 Tabs Oral DAILY Unchanged amLODIPine (amLODIPine 5 mg oral tablet) 1 Tabs Oral DAILY Unchanged aspirin 81 Milligram Oral DAILY Unchanged atorvastatin (atorvastatin 40 mg oral tablet) 1 Tabs Oral DAILY Unchanged cimetidine = tagamet (Tagamet HB 200 mg oral tablet) 1 Tabs Oral DAILY Unchanged clopidogrel (Plavix 75 mg oral tablet) 1 Tabs Oral DAILY Unchanged diphenhydrAMINE (Benadryl) 25 Milligram Oral DAILY as needed for as needed for insomnia Unchanged hydrOXYzine (hydrOXYzine hydrochloride 10 mg oral tablet) 1 Tabs Oral FOUR TIMES A DAY as needed for for anxiety Unchanged lisinopril (lisinopril 10 mg oral tablet) 1 Tabs Oral DAILY Unchanged meclizine = Antivert (meclizine 12.5 mg oral tablet) 1 Tabs Oral THREE TIMES A DAY as needed for as needed for motion sickness Unchanged melatonin 5 Milligram Oral AT BEDTIME Unchanged multivitamin (Multi Vitamin+) 1 tab Oral DAILY Unchanged polycarbophil (Fiber Tabs) 1,250 Milligram Oral DAILY Unchanged ticagrelor (Brilinta (ticagrelor) 90 mg oral tablet) 1 Tabs Oral TWICE A DAY Pharmacy Information [facility]: [address], [place] [id number] [phone] Assessment/Plan 1. CAD (coronary artery disease) I25.10:intervention to LAD and RCA 2. HTN (hypertension) I10 3. HLD (hyperlipidemia) E78.5 4. Continue current medications and follow-up in 6 months. Problem List/Past Medical History Ongoing Angina of effort CAD (coronary artery disease) Encounter for screening colonoscopy HLD (hyperlipidemia) HTN (hypertension) Hyperlipidemia Procedure/Surgical History Intravascular Ultrasound-Coronary Artery.: 07/20/23 Drug Eluting Stent- Coronary Artery.: 07/20/23 Percutaneous Coronary Angioplasty, Drug Eluting Stent- Chronic Total Occlusion.: 07/20/23 Left Heart Catheterization, left ventriculogram.: 07/13/23 Colonoscopy.: 03/26/20 Allergies No Known Allergies Social History Alcohol Use:Current Type:Beer Other Name:duarteene Substance Abuse - Denies Substance Abuse Tobacco Use:Never smoker Family History A-fib..: Mother. CABG - Coronary artery bypass graft: Father. Heart disease: Father. Stroke..: Mother. Valvular heart disease: Mother. Health Status Family Member(s) Care Team Primary Care Physician AVI CÁRDENAS [phone] Attending Physician MARISOL FRANKS, DONN [phone] [facility] Provider Letter - Ambulatory on 01-11-2024 Provider Letter - Ambulatory AVI CÁRDENAS, [address] [place] [address] RE: MARIELENA VILLALTA - 1960 01/01/2024 Dear AVI CÁRDENAS This document is confidential and intended solely for the use of the individual or entity to which they are addressed. If you are not the named addressee, please disregard and do not disseminate, distribute or copy this information. If you are not the intended recipient you are notified that any disclosure of this information and its contents are strictly prohibited. If you have any questions about this document, please contact the office. Sincerely, Veronica Machado MA [facility] The following document(s) were included in the letter: January 01, 2024 21:35:00 EDT - (01/01/2024) *.AMB Office Visit Note [facility] CNOVon 11-09-2023 CNOV Office Visit (ROBERT) MAIRELENA VILLALTA ([id number]) 1960 M Date Time Provider Department 11/09/23 1:30 PM CARD REHAB PHASE 2 [facility] During your visit today, we recorded the following information about you: Pulse Blood pressure Weight 55/minute 124/58 68.3 kg Jennifer Marino, Construction Technology Instructor 11/09/2023 2:24 PM Cosign Needed Cardiac Rehabilitation Hospital Based Program Supervising Physician: Pierre Kaplan Diagnosis: PTCA Phase: 2 Monitor: Yes Session Number: 20 Today's exercise session was comprised of a warm-up, aerobic conditioning phase, aerobic cool-down, and free weight resistance training. Patient tolerated prescribed exercise workload. Tele SR-ST without ectopic beats. Vitals WNL for patient. No chest discomfort. No medication changes. This is a hospital based cardiac rehab program. Patient working towards exercise goals by sustaining exercise intensity and duration. Patient working towards education goal by attending education sessions in cardiac rehabilitation. Patient has verbalized understanding of med diet education topic and the relation to disease managment. Patient's Daily Exercise Log will be scanned into [employer] once it is completed. These can be viewed by going under the Scanned Documents tab and looking for documents labeled Cardiac Rehabilitation. Daily Exercise Logs contain exercise data such as, but not limited to modality, intensity, duration and frequency of exercise, along with vital signs pre-, during, and post-exercise. Refer to patient's paper medical record for ECG rhythm strips, physician prescribed Individualized Treatment Plan, and education sessions covered. Jennifer Marino, Construction Technology Instructor [facility] [place] Department of Cardiovascular Medicine Discharge Assessment for Cardiac Rehab Marielena Villalta 11/09/2023 CHIEF COMPLAINT: Marielena Villalta is a 63 year old male seen today. Patient presents with: Cardiac Rehab: Discharge Patient completed optimal therapeutic dose of cardiac rehab: Yes Patient demonstrated clinically significant increase in functional capacity: Yes Patient achieved/maintained optimal blood pressure control: Yes Patient achieved clinical significant decrease in symptoms of depression: Yes Current smoking status: Never OUTCOMES: Initial Asmt Outcome 08/30/2023 Resting BP 98/54 Mediterranean Diet Score 5 PHQ9 Score 6 Discharge Asmt Outcome 11/08/2023 Completed Ex. Sessions 20 Weight 150.6 BMI 22.3 No past medical history on file. No past surgical history on file. No family history on file. CURRENT MEDS: No current outpatient medications on file. No current facility-administered medications for this visit. ALLERGIES Not on File PHYSICAL EXAMINATION: BP 124/58 Pulse 55 Wt 150 lb 9.6 oz (68.3kg) INDIVIDUAL TREATMENT PLAN Program Location: [place] Program: Exit Phase II EXERCISE ASSESSMENT Current Exercise: Yes Type of Exercise: Walk;Strength Exercise Duration: 40 minutes Exercise Intensity: Moderate Exercise Equipment: Yes Exercise Limitations/Symptoms: No Assist Device: No Oxygen: No Stress Test: No 6 Minute Walk Test: Yes Date: 08/30/23 Distance (ft): 1375 EXERCISE DISCHARGE PLAN Frequency: 3-5 Times Per Week Mode: Treadmill;Cycle;Recum bent Stepper;Elliptical; rDyne;Arm Ergometer;Recumbent Bike;Weights;Walking Intensity: Within Set Target Heart Rate METS: 4.7 may exceed with in target heart rate Target Heart Rate (BPM): 78-110 Workload: 50-70% age max heart rate RPE: 11-14 out of 6-20 scale Initial Duration (minutes): 25 minutes Progression: Within Target Heart Rate Resistance Training: Free weights; currently using 5 lb weights Training Start Date: 08/31/23 WT Intensity: Weight to Have Local Muscle Fatigue in 10-15 Reps With 2-3 Sets Education Completed: RPE;Equipment Orientation;Target Heart Rate Range;Signs and Symptoms;Hand Hygiene;Cleaning of Equipment;Warm Up/Cool Down;Safety Guidelines;Exercise Prescription;Exercise Considerations;Equipm ent orientation;Exercise Safety;Exercise Benefits Patient Understands Intervention: Yes EXERCISE GOAL Distance on 6 Min Walk Test : 1746 (Patient exceeded goal of 1513 ft) Increase in Estimated METS: 4.7 (Patient exceeded goal of 4.3 METS) Duration of Exer Min Per Session: 40 (Patient met the goal of 40 minutes per session) Minutes Per Week of Exercise : Minium of 150 minutes of aerobic exercise per week. Aim for 250-300 minutes per week Home Exercise Plan: Patient stated he will be going to [facility] 3x's a week; 45 minutes per session Other: Increase Strength;Increase Endurance NUTRITION DISCHARGE/FOLLOW UP Current Diet: Mediterranean Barriers: Dining Out;Other Member Prepares Meals Education Completed: Reading Labels;Portion Contro (more content not included)... [facility] (ROBERT) DUMARIELENA MOSES ([id number]) 1960 M Date Time Provider Department 11/07/23 1:30 PM CARD REHAB PHASE 2 [facility] During your visit today, we recorded the following information about you: Jenni Busby, stock control clerk 11/07/2023 1:34 PM Signed Cardiac Rehabilitation Hospital Based Program Supervising Physician: Pierre Kaplan Diagnosis: PTCA Phase: 2 Monitor: Yes Session Number: 19 Today's exercise session was comprised of a warm-up, aerobic conditioning phase, aerobic cool-down, and free weight resistance training. Patient tolerated prescribed exercise workload. Tele SR-ST without ectopic beats. Vitals WNL for patient. No chest discomfort. No medication changes. This is a hospital based cardiac rehab program. Patient working towards exercise goals by increasing exercise intensity. Patient working towards education goal by attending education sessions in cardiac rehabilitation. Patient has verbalized understanding of Heart failure education topic and the relation to disease managment. Patient's Daily Exercise Log will be scanned into [employer] once it is completed. These can be viewed by going under the Scanned Documents tab and looking for documents labeled Cardiac Rehabilitation. Daily Exercise Logs contain exercise data such as, but not limited to modality, intensity, duration and frequency of exercise, along with vital signs pre-, during, and post-exercise. Refer to patient's paper medical record for ECG rhythm strips, physician prescribed Individualized Treatment Plan, and education sessions covered. Jenni Busby, Construction Technology Instructor Allergies As of Date: 11/07/2023 (Not on File) Date Reviewed: Never Reviewed Reason for Visit: Cardiac Rehab [3551] Primary Visit Diagnosis:S/P PTCA (percutaneous transluminal coronary angioplasty) [Z98.61] Problem List As Of Date: 11/07/2023 (None) Encounter Status:[facility] Office Visit (ROBERT) MARIELENA VILLALTA ([id number]) 1960 M Date Time Provider Department 11/02/23 1:30 PM CARD REHAB PHASE 2 [facility] During your visit today, we recorded the following information about you: Dung Glez, Construction Technology Instructor 11/02/2023 1:39 PM Signed Cardiac Rehabilitation Hospital Based Program Supervising Physician: Pierre Kaplan Diagnosis: PTCA Phase: 2 Monitor: Yes Session Number: 18 Today's exercise session was comprised of a warm-up, aerobic conditioning phase, aerobic cool-down, and free weight resistance training. Patient tolerated prescribed exercise workload. Tele SR-ST without ectopic beats. Vitals WNL for patient. No chest discomfort. No medication changes. This is a hospital based cardiac rehab program. Patient working towards exercise goals by increasing exercise intensity and duration. Patient working towards education goal by attending education sessions in cardiac rehabilitation. Patient has verbalized understanding of Angina, NTG, [place] education topic and the relation to disease managment. Patient's Daily Exercise Log will be scanned into [employer] once it is completed. These can be viewed by going under the Scanned Documents tab and looking for documents labeled Cardiac Rehabilitation. Daily Exercise Logs contain exercise data such as, but not limited to modality, intensity, duration and frequency of exercise, along with vital signs pre-, during, and post-exercise. Refer to patient's paper medical record for ECG rhythm strips, physician prescribed Individualized Treatment Plan, and education sessions covered. Dung Glez Construction Technology Instructor Allergies As of Date: 11/02/2023 (Not on File) Date Reviewed: Never Reviewed Reason for Visit: Cardiac Rehab [3551] Primary Visit Diagnosis:S/P PTCA (percutaneous transluminal coronary angioplasty) [Z98.61] Problem List As Of Date: 11/02/2023 (None) Encounter Status:Closed by DUNG GLEZ on 11/02/23 [facility] 10-31-2023 [facility] Office Visit (ROBERT) KAYLAMARIELENA Lama ([id number]) 1960 M Date Time Provider Department 10/31/23 1:30 PM CARD REHAB PHASE 2 [facility] During your visit today, we recorded the following information about you: Jenni Busby, stock control clerk 10/31/2023 1:37 PM Signed Cardiac Rehabilitation Hospital Based Program Supervising Physician: Pierre Kaplan Diagnosis: PTCA Phase: 2 Monitor: Yes Session Number: 17 Today's exercise session was comprised of a warm-up, aerobic conditioning phase, aerobic cool-down, and free weight resistance training. Patient tolerated prescribed exercise workload. Tele SB-SR without ectopic beats. Vitals WNL for patient. No chest discomfort. No medication changes. This is a hospital based cardiac rehab program. Patient working towards exercise goals by increasing exercise intensity. Patient working towards education goal by attending education sessions in cardiac rehabilitation. Patient has verbalized understanding of Coronary arteries education topic and the relation to disease managment. Patient's Daily Exercise Log will be scanned into [employer] once it is completed. These can be viewed by going under the Scanned Documents tab and looking for documents labeled Cardiac Rehabilitation. Daily Exercise Logs contain exercise data such as, but not limited to modality, intensity, duration and frequency of exercise, along with vital signs pre-, during, and post-exercise. Refer to patient's paper medical record for ECG rhythm strips, physician prescribed Individualized Treatment Plan, and education sessions covered. Jenni Busby, Construction Technology Instructor Allergies As of Date: 10/31/2023 (Not on File) Date Reviewed: Never Reviewed Reason for Visit: Cardiac Rehab [3551] Primary Visit Diagnosis:S/P PTCA (percutaneous transluminal coronary angioplasty) [Z98.61] Problem List As Of Date: 10/31/2023 (None) Encounter Status:Closed by JENNI BUSBY on 10/31/23 [facility] CNOVon 10-26-2023 [facility] Office Visit (ROBERT) DUMARIELENA MOSES ([id number]) 1960 M Date Time Provider Department 10/26/23 1:30 PM CARD REHAB PHASE 2 [facility] During your visit today, we recorded the following information about you: Pulse Blood pressure Weight 53/minute 102/64 68.3 kg Jenni Busby, stock control clerk 10/26/2023 1:37 PM Addendum Card[facility] Supervising Physician: Pierre Kaplan Diagnosis: PCTA Phase: 2 Monitor: Yes Session Number: 16 Today's exercise session was comprised of a warm-up, aerobic conditioning phase, aerobic cool-down, and free weight resistance training. Patient tolerated prescribed exercise workload. Tele SB-SR without ectopic beats. Vitals WNL for patient. No chest discomfort. No medication changes. This is a hospital based cardiac rehab program. Patient working towards exercise goals by increasing exercise duration. Patient working towards education goal by attending education sessions in cardiac rehabilitation. Patient has verbalized understanding of Depression education topic and the relation to disease managment. Patient's Daily Exercise Log will be scanned into [employer] once it is completed. These can be viewed by going under the Scanned Documents tab and looking for documents labeled Cardiac Rehabilitation. Daily Exercise Logs contain exercise data such as, but not limited to modality, intensity, duration and frequency of exercise, along with vital signs pre-, during, and post-exercise. Refer to patient's paper medical record for ECG rhythm strips, physician prescribed Individualized Treatment Plan, and education sessions covered. Jenni Busby, Construction Technology Instructor [facility] [place] Department of Cardiovascular Medicine 30 DAY Assessment for Cardiac Rehab Marielena Villalta 10/26/2023 CHIEF COMPLAINT: Marielena Villalta is a 63 year old male seen today. Patient presents with: Cardiac Rehab: 60 day assessment HISTORY OF PRESENT ILLNESS: No past medical history on file. No past surgical history on file. No family history on file. CURRENT MEDS: No current outpatient medications on file. No current facility-administered medications for this visit. ALLERGIES Not on File PHYSICAL EXAMINATION: BP 102/64 Pulse 53 Wt 150 lb 8 oz (68.3kg) INDIVIDUAL TREATMENT PLAN Program Location: [place] EXERCISE REASSESSMENT Current Exercise at Rehab: Patient is currently exercising 2x's a week for 32 minutes per session on the treadmill Treadmill METS : 4.3 RT Weight : 4 lbs Home Exercise: Yes Mode: walking on the treadmill Intensity: moderate Duration: 2x's a week; 30-40 minutes per session Current Symptoms: Asymptomatic Education Completed: RPE, Equipment Orientation, Signs and Symptoms, Target Heart Rate Range, Hand Hygiene, Cleaning of Equipment, Warm Up/Cool Down, Safety Guidelines, Exercise Prescription, Exercise Considerations, Equipment orientation, Exercise Safety, Exercise Benefits EXERCISE INTERVENTION/PRESCRIP TION Exercise Prescription: see outline below Aerobic: Yes Distance: 32 minutes (minutes) Frequency: 3-5 Per Week Mode: Treadmill, Cycle, Recumbent Stepper, Elliptical, AirDyne, Arm Ergometer, Recumbent Bike, Weights, Walking Intensity: 50-70% age max heart rate METS: 4.3 may exceed with in target heart rate Target Heart Rate (BPM): 78-110 Workload: 50-70% age max heart rate RPE: 11-14 out of 6-20 scale Initial Duration (minutes): 25 minutes Progression: 0.5 Mets Every 1-2 Weeks as Tolerated Resistance Training: Free weights; currently using 4 lb weights WT Intensity: Weight to Have Local Muscle Fatigue in 10-15 Reps With 2-3 Sets Minutes per Week of Exercise : 144 (between cardiac rehab and home exercise) Education Needed: (educations completed) Patient Understands Intervention: Yes EXERCISE GOAL Distance on 6 Min Walk Test : 1513 (which is a 10% increase from initial 6MWT) Increase in Estimated METS: 4.3 (which is a 40% increase from initial MET level. Patient is currently exercising at a 4.3 MEt level) Duration of Exer Min Per Session: 40 (Patient is currently exercising for 32 minutes per session) Minutes Per Week of Exercise : Minimum of 150 minutes of aerobic exercise per week between cardiac rehab and home exercise. Aim for 250-300 minutes per week. Home Exercise Plan: Patient should have set home exercise plan post cardiac rehab Other: Increase Strength, Increase Endurance NUTRITION REASSESSMENT Actual Mediterranean Diet Score: 5 Mediterranean Diet Score: less than or equal to 8 Poor-many changes needed: Yes Current Diet: Mediterranean Alcohol Servings: 2 per week (2 drinks a week) Education Completed: Reading Labels, Portion Control, Decreased Fat Intake, Increase Fruit/Vegetables, Heart Healthy Eating for Life, Weight (more content not included)... Normal [facility] 10-24-2023 [facility] Office Visit ([facility]OBERT) MARIELENA VILLALTA ([id number]) 1960 M Date Time Provider Department 10/24/23 1:30 PM CARD REHAB PHASE 2 [facility] During your visit today, we recorded the following information about you: Jennifer Marino, Construction Technology Instructor 10/24/2023 1:43 PM Signed Cardiac Rehabilitation [facility] Supervising Physician: Pierre Kaplan Diagnosis: PTCA Phase: 2 Monitor: Yes Session Number: 15 Today's exercise session was comprised of a warm-up, aerobic conditioning phase, aerobic cool-down, and free weight resistance training. Patient tolerated prescribed exercise workload. Tele SB-SR without ectopic beats. Vitals WNL for patient. No chest discomfort. No medication changes. This is a hospital based cardiac rehab program. Patient working towards exercise goals by sustaining exercise intensity and duration. Patient working towards education goal by attending education sessions in cardiac rehabilitation. Patient has verbalized understanding of stress management education topic and the relation to disease managment. Patient's Daily Exercise Log will be scanned into [employer] once it is completed. These can be viewed by going under the Scanned Documents tab and looking for documents labeled Cardiac Rehabilitation. Daily Exercise Logs contain exercise data such as, but not limited to modality, intensity, duration and frequency of exercise, along with vital signs pre-, during, and post-exercise. Refer to patient's paper medical record for ECG rhythm strips, physician prescribed Individualized Treatment Plan, and education sessions covered. Jennifer Marino Construction Technology Instructor Allergies As of Date: 10/24/2023 (Not on File) Date Reviewed: Never Reviewed Reason for Visit: Cardiac Rehab [3551] Primary Visit Diagnosis:S/P PTCA (percutaneous transluminal coronary angioplasty) [Z98.61] Problem List As Of Date: 10/24/2023 (None) Encounter Status:Closed by JENNIFER MARINO on 10/24/23 [facility] 10-19-2023 [facility] Office Visit (ROBERT) MARIELENA VILLALTA ([id number]) 1960 M Date Time Provider Department 10/19/23 1:30 PM CARD REHAB PHASE 2 [facility] During your visit today, we recorded the following information about you: Jennifer Marino, Construction Technology Instructor 10/19/2023 1:49 PM Signed Cardiac Rehabilitation [facility] Supervising Physician: Pierre Kaplan Diagnosis: PTCA Phase: 2 Monitor: Yes Session Number: 14 Today's exercise session was comprised of a warm-up, aerobic conditioning phase, aerobic cool-down, and free weight resistance training. Patient tolerated prescribed exercise workload. Tele SB-SR without ectopic beats. Vitals WNL for patient. No chest discomfort. No medication changes. This is a hospital based cardiac rehab program. Patient working towards exercise goals by increasing exercise intensity. Patient working towards education goal by attending education sessions in cardiac rehabilitation. Patient has verbalized understanding of exercise education topic and the relation to disease managment. Patient's Daily Exercise Log will be scanned into [employer] once it is completed. These can be viewed by going under the Scanned Documents tab and looking for documents labeled Cardiac Rehabilitation. Daily Exercise Logs contain exercise data such as, but not limited to modality, intensity, duration and frequency of exercise, along with vital signs pre-, during, and post-exercise. Refer to patient's paper medical record for ECG rhythm strips, physician prescribed Individualized Treatment Plan, and education sessions covered. Jennifer Marino Construction Technology Instructor Allergies As of Date: 10/19/2023 (Not on File) Date Reviewed: Never Reviewed Reason for Visit: Cardiac Rehab [3551] Primary Visit Diagnosis:S/P PTCA (percutaneous transluminal coronary angioplasty) [Z98.61] Problem List As Of Date: 10/19/2023 (None) Encounter Status:Closed by JENNIFER MARINO on 10/19/23 [facility] 10-17-2023 [facility] Office Visit (ROBERT) MARIELENA VILLALTA ([id number]) 1960 M Date Time Provider Department 10/17/23 1:30 PM CARD REHAB PHASE 2 [facility] During your visit today, we recorded the following information about you: Jennifer Marino, Construction Technology Instructor 10/17/2023 1:46 PM Signed Cardiac Rehabilitation [facility] Supervising Physician: Pierre Kaplan Diagnosis: PTCA Phase: 2 Monitor: Yes Session Number: 13 Today's exercise session was comprised of a warm-up, aerobic conditioning phase, aerobic cool-down, and free weight resistance training. Patient tolerated prescribed exercise workload. Tele SB-SR without ectopic beats. Vitals WNL for patient. No chest discomfort. No medication changes. This is a hospital based cardiac rehab program. Patient working towards exercise goals by sustaining exercise intensity and duration. Patient working towards education goal by attending education sessions in cardiac rehabilitation. Patient has verbalized understanding of cardiac AANDP education topic and the relation to disease managment. Patient's Daily Exercise Log will be scanned into [employer] once it is completed. These can be viewed by going under the Scanned Documents tab and looking for documents labeled Cardiac Rehabilitation. Daily Exercise Logs contain exercise data such as, but not limited to modality, intensity, duration and frequency of exercise, along with vital signs pre-, during, and post-exercise. Refer to patient's paper medical record for ECG rhythm strips, physician prescribed Individualized Treatment Plan, and education sessions covered. Jennifer Marino, Construction Technology Instructor Allergies As of Date: 10/17/2023 (Not on File) Date Reviewed: Never Reviewed Reason for Visit: Cardiac Rehab [3551] Primary Visit Diagnosis:S/P PTCA (percutaneous transluminal coronary angioplasty) [Z98.61] Problem List As Of Date: 10/17/2023 (None) Encounter Status:Closed by JENNIFER MARINO on 10/17/23 [facility] 10-12-2023 [facility] Office Visit (ROBERT) MARIELENA VILLALTA ([id number]) 1960 M Date Time Provider Department 10/12/23 1:30 PM CARD REHAB PHASE 2 [facility] During your visit today, we recorded the following information about you: Jenni Busby, stock control clerk 10/12/2023 1:51 PM Signed Cardiac Rehabilitation [facility] Supervising Physician: Pierre Kaplan Diagnosis: PTCA Phase: 2 Monitor: Yes Session Number: 12 Today's exercise session was comprised of a warm-up, aerobic conditioning phase, aerobic cool-down, and free weight resistance training. Patient tolerated prescribed exercise workload. Tele SB-SR without ectopic beats. Vitals WNL for patient. No chest discomfort. No medication changes. This is a hospital based cardiac rehab program. Patient working towards exercise goals by sustaining exercise intensity and duration. Patient working towards education goal by attending education sessions in cardiac rehabilitation. Patient has verbalized understanding of Weight Management education topic and the relation to disease managment. Patient's Daily Exercise Log will be scanned into [employer] once it is completed. These can be viewed by going under the Scanned Documents tab and looking for documents labeled Cardiac Rehabilitation. Daily Exercise Logs contain exercise data such as, but not limited to modality, intensity, duration and frequency of exercise, along with vital signs pre-, during, and post-exercise. Refer to patient's paper medical record for ECG rhythm strips, physician prescribed Individualized Treatment Plan, and education sessions covered. Jenni Busby Construction Technology Instructor Allergies As of Date: 10/12/2023 (Not on File) Date Reviewed: Never Reviewed Reason for Visit: Cardiac Rehab [3551] Primary Visit Diagnosis:S/P coronary artery stent placement [Z95.5] Problem List As Of Date: 10/12/2023 (None) Encounter Status:Closed by JENNI BUSBY on 10/12/23 [facility] 10-10-2023 [facility] Office Visit (ROBERT) MARIELENA VILLALTA ([id number]) 1960 M Date Time Provider Department 10/10/23 1:30 PM CARD REHAB PHASE 2 [facility] During your visit today, we recorded the following information about you: Jennifer Marino, Construction Technology Instructor 10/10/2023 1:57 PM Signed Cardiac Rehabilitation [facility] Supervising Physician: Pierre Kaplan Diagnosis: PTCA Phase: 2 Monitor: Yes Session Number: 11 Today's exercise session was comprised of a warm-up, aerobic conditioning phase, aerobic cool-down, and free weight resistance training. Patient tolerated prescribed exercise workload. Tele SB-SR without ectopic beats. Vitals WNL for patient. No chest discomfort. No medication changes. This is a hospital based cardiac rehab program. Patient working towards exercise goals by sustaining exercise intensity and duration. Patient working towards education goal by attending education sessions in cardiac rehabilitation. Patient has verbalized understanding of diabetes education topic and the relation to disease managment. Patient's Daily Exercise Log will be scanned into [employer] once it is completed. These can be viewed by going under the Scanned Documents tab and looking for documents labeled Cardiac Rehabilitation. Daily Exercise Logs contain exercise data such as, but not limited to modality, intensity, duration and frequency of exercise, along with vital signs pre-, during, and post-exercise. Refer to patient's paper medical record for ECG rhythm strips, physician prescribed Individualized Treatment Plan, and education sessions covered. Jennifer Marino, Construction Technology Instructor Allergies As of Date: 10/10/2023 (Not on File) Date Reviewed: Never Reviewed Reason for Visit: Cardiac Rehab [3551] Primary Visit Diagnosis:S/P PTCA (percutaneous transluminal coronary angioplasty) [Z98.61] Problem List As Of Date: 10/10/2023 (None) Encounter Status:Closed by JENNIFER MARINO on 10/10/23 [facility] 10-05-2023 [facility] Office Visit (ROBERT) MARIELENA VILLALTA ([id number]) 1960 M Date Time Provider Department 10/05/23 1:30 PM CARD REHAB PHASE 2 [facility] During your visit today, we recorded the following information about you: Josh Aponte RN 10/05/2023 1:35 PM Signed Cardiac Rehabilitation [facility] Supervising Physician: Pierre Kaplan Diagnosis: PCI w/stent Phase: 2 Monitor: Yes Session Number: 10 Today's exercise session was comprised of a warm-up, aerobic conditioning phase, aerobic cool-down, and free weight resistance training. Patient tolerated prescribed exercise workload. Tele SB-SR without ectopic beats. Vitals WNL for patient. No chest discomfort. No medication changes. This is a hospital based cardiac rehab program. Patient working towards exercise goals by increasing exercise intensity and duration. Patient working towards education goal by attending education sessions in cardiac rehabilitation. Patient has verbalized understanding of blood pressure education topic and the relation to disease managment. Patient's Daily Exercise Log will be scanned into [employer] once it is completed. These can be viewed by going under the Scanned Documents tab and looking for documents labeled Cardiac Rehabilitation. Daily Exercise Logs contain exercise data such as, but not limited to modality, intensity, duration and frequency of exercise, along with vital signs pre-, during, and post-exercise. Refer to patient's paper medical record for ECG rhythm strips, physician prescribed Individualized Treatment Plan, and education sessions covered. Josh Aponte RN Allergies As of Date: 10/05/2023 (Not on File) Date Reviewed: Never Reviewed Reason for Visit: Cardiac Rehab [3551] Primary Visit Diagnosis:S/P coronary artery stent placement [Z95.5] Problem List As Of Date: 10/05/2023 (None) Encounter Status:Closed by JOSH APONTE on 10/05/23 [facility] 10-03-2023 [facility] Office Visit (ROBERT) MARIELENA VILLALTA ([id number]) 1960 M Date Time Provider Department 10/03/23 1:30 PM CARD REHAB PHASE 2 [facility] During your visit today, we recorded the following information about you: Jennifer Marino, Construction Technology Instructor 10/03/2023 1:52 PM Signed Cardiac Rehabilitation [facility] Supervising Physician: Pierre Kaplan Diagnosis: PTCA Phase: 2 Monitor: Yes Session Number: 9 Today's exercise session was comprised of a warm-up, aerobic conditioning phase, aerobic cool-down, and free weight resistance training. Patient tolerated prescribed exercise workload. Tele SR without ectopic beats. Vitals WNL for patient. No chest discomfort. No medication changes. This is a hospital based cardiac rehab program. Patient working towards exercise goals by increasing exercise intensity and duration. Patient working towards education goal by attending education sessions in cardiac rehabilitation. Patient has verbalized understanding of risk factors education topic and the relation to disease managment. Patient's Daily Exercise Log will be scanned into [employer] once it is completed. These can be viewed by going under the Scanned Documents tab and looking for documents labeled Cardiac Rehabilitation. Daily Exercise Logs contain exercise data such as, but not limited to modality, intensity, duration and frequency of exercise, along with vital signs pre-, during, and post-exercise. Refer to patient's paper medical record for ECG rhythm strips, physician prescribed Individualized Treatment Plan, and education sessions covered. Jennifer Marino, Construction Technology Instructor Allergies As of Date: 10/03/2023 (Not on File) Date Reviewed: Never Reviewed Reason for Visit: Cardiac Rehab [3551] Primary Visit Diagnosis:S/P PTCA (percutaneous transluminal coronary angioplasty) [Z98.61] Problem List As Of Date: 10/03/2023 (None) Encounter Status:Closed by JENNIFER MARINO on 10/03/23 [facility] 09-28-2023 [facility] Office Visit ([facility]OBERT) MARIELENA VILLALTA ([id number]) 1960 M Date Time Provider Department 09/28/23 1:30 PM CARD REHAB PHASE 2 [facility] During your visit today, we recorded the following information about you: Pulse Blood pressure Weight 63/minute 98/62 69.3 kg Jenni Busby, stock control clerk 09/28/2023 1:39 PM Signed Cardiac Rehabilitation [facility] Supervising Physician: Pierre Kaplan Diagnosis: PTCA Phase: 2 Monitor: Yes Session Number: 8 Today's exercise session was comprised of a warm-up, aerobic conditioning phase, aerobic cool-down, and free weight resistance training. Patient tolerated prescribed exercise workload. Tele SR without ectopic beats. Vitals WNL for patient. No chest discomfort. No medication changes. This is a hospital based cardiac rehab program. Patient working towards exercise goals by increasing exercise intensity. Patient working towards education goal by attending education sessions in cardiac rehabilitation. Patient has verbalized understanding of Portion control education topic and the relation to disease managment. Patient's Daily Exercise Log will be scanned into [employer] once it is completed. These can be viewed by going under the Scanned Documents tab and looking for documents labeled Cardiac Rehabilitation. Daily Exercise Logs contain exercise data such as, but not limited to modality, intensity, duration and frequency of exercise, along with vital signs pre-, during, and post-exercise. Refer to patient's paper medical record for ECG rhythm strips, physician prescribed Individualized Treatment Plan, and education sessions covered. Jenni Busby, Construction Technology Instructor [facility] [place] Department of Cardiovascular Medicine 30 DAY Assessment for Cardiac Rehab Marielena Villalta 09/28/2023 CHIEF COMPLAINT: Marielena Villalta is a 63 year old male seen today. Patient presents with: Cardiac Rehab: 30 day assessment HISTORY OF PRESENT ILLNESS: PCTA No past medical history on file. No past surgical history on file. No family history on file. CURRENT MEDS: No current outpatient medications on file. No current facility-administered medications for this visit. ALLERGIES Not on File PHYSICAL EXAMINATION: BP 98/62 Pulse 63 Wt 152 lb 11.2 oz (69.3kg) INDIVIDUAL TREATMENT PLAN Program Location: [place] EXERCISE REASSESSMENT Current Exercise at Rehab: Patient is currently exercising 2x's a week for 30 minutes per session on the treadmill Treadmill METS : 3.6 RT Weight : 4 lbs Home Exercise: Yes Mode: Walking on the treadmill Intensity: low Duration: 1x a week; 35-40 minutes per session Current Symptoms: Asymptomatic Education Completed: RPE, Equipment Orientation, Signs and Symptoms, Target Heart Rate Range, Hand Hygiene, Cleaning of Equipment, Warm Up/Cool Down, Safety Guidelines, Exercise Prescription, Exercise Considerations, Equipment orientation, Exercise Safety, Exercise Benefits EXERCISE INTERVENTION/PRESCRIP TION Exercise Prescription: see outline below Aerobic: Yes Distance: 30 minutes (minutes) Frequency: 3-5 Per Week Mode: Treadmill, Cycle, Recumbent Stepper, Elliptical, AirDyne, Arm Ergometer, Recumbent Bike, Weights, Walking Intensity: 50-70% age max heart rate METS: 3.6-4.3 may exceed with in target heart rate Target Heart Rate (BPM): 78-110 Workload: 50-70% age max heart rate RPE: 11-14 out of 6-20 scale Initial Duration (minutes): 25 minutes Progression: 0.5 Mets Every 1-2 Weeks as Tolerated Resistance Training: Free weights; currently using 4 lb weights WT Intensity: Weight to Have Local Muscle Fatigue in 10-15 Reps With 2-3 Sets Minutes per Week of Exercise : 100 (between cardiac rehab and home exercise) Education Needed: (educations completed) EXERCISE GOAL Distance on 6 Min Walk Test : 1513 (which is a 10% increase from initial 6MWT) Increase in Estimated METS: 4.3 (which is a 40% increase from initial MET level. Patient is currenlty exercising at a 3.6 MEt level) Duration of Exer Min Per Session: 40 (Patient is currently exercising for 30 minutes per session) Minutes Per Week of Exercise : Minimum of 150 minutes of aerobic exercise per week between cardiac rehab and home exercise. Home Exercise Plan: To exercise at least 2-4 days per week on the days not in cardiac rehab to collectively obtain 5-7 days per week of aerobic exercise between CR and Home Other: Increase Endurance, Increase Strength NUTRITION REASSESSMENT Actual Mediterranean Diet Score: 5 Mediterranean Diet Score: less than or equal to 8 Poor-many changes needed: Yes Current Diet: Mediterranean Alcohol Servings: 2 per week (2 beers a week) Education Completed: Reading Labels, Portion Control NUTRITION INTERVENTION/GOAL Treatment Plan: Diet Log, Cardiac (more content not included)... [facility] Office Visit ([facility]OBERT) MARIELENA VILLALTA ([id number]) 1960 M Date Time Provider Department 09/26/23 1:30 PM CARD REHAB PHASE 2 [facility] During your visit today, we recorded the following information about you: Jennifer Marino, Construction Technology Instructor 09/26/2023 1:51 PM Signed Cardiac Rehabilitation [facility] Program Supervising Physician: Pierre Kaplan Diagnosis: PTCA Phase: 2 Monitor: Yes Session Number: 7 Today's exercise session was comprised of a warm-up, aerobic conditioning phase, aerobic cool-down, and free weight resistance training. Patient tolerated prescribed exercise workload. Tele SR without ectopic beats. Vitals WNL for patient. No chest discomfort. No medication changes. This is a hospital based cardiac rehab program. Patient working towards exercise goals by increasing exercise duration. Patient working towards education goal by attending education sessions in cardiac rehabilitation. Patient has verbalized understanding of reading food labels education topic and the relation to disease managment. Patient's Daily Exercise Log will be scanned into [employer] once it is completed. These can be viewed by going under the Scanned Documents tab and looking for documents labeled Cardiac Rehabilitation. Daily Exercise Logs contain exercise data such as, but not limited to modality, intensity, duration and frequency of exercise, along with vital signs pre-, during, and post-exercise. Refer to patient's paper medical record for ECG rhythm strips, physician prescribed Individualized Treatment Plan, and education sessions covered. Jennifer Marino, Construction Technology Instructor Allergies As of Date: 09/26/2023 (Not on File) Date Reviewed: Never Reviewed Reason for Visit: Cardiac Rehab [3551] Primary Visit Diagnosis:S/P PTCA (percutaneous transluminal coronary angioplasty) [Z98.61] Problem List As Of Date: 09/26/2023 (None) Encounter Status:Closed by JENNIFER MARINO on 09/26/23 [facility] 09-21-2023 [facility] Office Visit (ROBERT) MARIELENA VILLALTA ([id number]) 1960 M Date Time Provider Department 09/21/23 1:30 PM CARD REHAB PHASE 2 [facility] During your visit today, we recorded the following information about you: Josh Aponte RN 09/21/2023 1:51 PM Signed Cardiac Rehabilitation [facility] Program Supervising Physician: Pierre Kaplan Diagnosis: PCI w/stent Phase: 2 Monitor: Yes Session Number: 6 Today's exercise session was comprised of a warm-up, aerobic conditioning phase, aerobic cool-down, and free weight resistance training. Patient tolerated prescribed exercise workload. Tele SR without ectopic beats. Vitals WNL for patient. No chest discomfort. No medication changes. This is a hospital based cardiac rehab program. Patient working towards exercise goals by increasing exercise intensity. Patient working towards education goal by attending education sessions in cardiac rehabilitation. Patient has verbalized understanding of CHF education topic and the relation to disease managment. Patient's Daily Exercise Log will be scanned into [employer] once it is completed. These can be viewed by going under the Scanned Documents tab and looking for documents labeled Cardiac Rehabilitation. Daily Exercise Logs contain exercise data such as, but not limited to modality, intensity, duration and frequency of exercise, along with vital signs pre-, during, and post-exercise. Refer to patient's paper medical record for ECG rhythm strips, physician prescribed Individualized Treatment Plan, and education sessions covered. Josh Aponte RN Allergies As of Date: 09/21/2023 (Not on File) Date Reviewed: Never Reviewed Reason for Visit: Cardiac Rehab [3551] Primary Visit Diagnosis:S/P coronary artery stent placement [Z95.5] Problem List As Of Date: 09/21/2023 (None) Encounter Status:Closed by JOSH APONTE on 09/21/23 [facility] 09-19-2023 [facility] Office Visit (ROBERT) MARIELENA VILLALTA ([id number]) 1960 M Date Time Provider Department 09/19/23 1:30 PM CARD REHAB PHASE 2 [facility] During your visit today, we recorded the following information about you: Jennifer Marino, Construction Technology Instructor 09/19/2023 1:52 PM Signed Cardiac Rehabilitation [facility] Supervising Physician: Dr. Arnett Diagnosis: PTCA Phase: 2 Monitor: Yes Session Number: 5 Today's exercise session was comprised of a warm-up, aerobic conditioning phase, aerobic cool-down, and free weight resistance training. Patient tolerated prescribed exercise workload. Tele SR/SA without ectopic beats. Vitals WNL for patient. No chest discomfort. No medication changes. This is a hospital based cardiac rehab program. Patient working towards exercise goals by sustaining exercise intensity and duration. Patient working towards education goal by attending education sessions in cardiac rehabilitation. Patient has verbalized understanding of heart valves education topic and the relation to disease managment. Patient's Daily Exercise Log will be scanned into [employer] once it is completed. These can be viewed by going under the Scanned Documents tab and looking for documents labeled Cardiac Rehabilitation. Daily Exercise Logs contain exercise data such as, but not limited to modality, intensity, duration and frequency of exercise, along with vital signs pre-, during, and post-exercise. Refer to patient's paper medical record for ECG rhythm strips, physician prescribed Individualized Treatment Plan, and education sessions covered. Jennifer Marino, Construction Technology Instructor Allergies As of Date: 09/19/2023 (Not on File) Date Reviewed: Never Reviewed Reason for Visit: Cardiac Rehab [3551] Primary Visit Diagnosis:S/P PTCA (percutaneous transluminal coronary angioplasty) [Z98.61] Problem List As Of Date: 09/19/2023 (None) Encounter Status:Closed by JENNIFER MARINO on 09/19/23 [facility] 09-17-2023 [facility] Office Visit (ROBERT) MARIELENA VILLALTA ([id number]) 1960 M Date Time Provider Department 09/17/23 1:30 PM CARD REHAB PHASE 2 [facility] During your visit today, we recorded the following information about you: Allergies As of Date: 09/17/2023 (Not on File) Date Reviewed: Never Reviewed Reason for Visit: Cardiac Rehab [3551] Primary Visit Diagnosis:S/P PTCA (percutaneous transluminal coronary angioplasty) [Z98.61] Problem List As Of Date: 09/17/2023 (None) Encounter Status:Closed by DUNG GLEZ on 09/18/23 [facility] 09-12-2023 [facility] Office Visit (ROBERT) MARIELENA VILLALTA ([id number]) 1960 M Date Time Provider Department 09/12/23 1:30 PM CARD REHAB PHASE 2 [facility] During your visit today, we recorded the following information about you: Jennifer Mairno, Construction Technology Instructor 09/12/2023 1:39 PM Signed Cardiac Rehabilitation [facility] Supervising Physician: Michael Tubbs Diagnosis: PTCA Phase: 2 Monitor: Yes Session Number: 4 Today's exercise session was comprised of a warm-up, aerobic conditioning phase, aerobic cool-down, and free weight resistance training. Patient tolerated prescribed exercise workload. Tele SR/SA without ectopic beats. Vitals WNL for patient. No chest discomfort. No medication changes. This is a hospital based cardiac rehab program. Patient working towards exercise goals by increasing exercise intensity and duration. Patient working towards education goal by attending education sessions in cardiac rehabilitation. Patient has verbalized understanding of coronary arteries education topic and the relation to disease managment. Patient's Daily Exercise Log will be scanned into [employer] once it is completed. These can be viewed by going under the Scanned Documents tab and looking for documents labeled Cardiac Rehabilitation. Daily Exercise Logs contain exercise data such as, but not limited to modality, intensity, duration and frequency of exercise, along with vital signs pre-, during, and post-exercise. Refer to patient's paper medical record for ECG rhythm strips, physician prescribed Individualized Treatment Plan, and education sessions covered. Jennifer Marino Construction Technology Instructor Allergies As of Date: 09/12/2023 (Not on File) Date Reviewed: Never Reviewed Reason for Visit: Cardiac Rehab [3551] Primary Visit Diagnosis:S/P PTCA (percutaneous transluminal coronary angioplasty) [Z98.61] Problem List As Of Date: 09/12/2023 (None) Encounter Status:Closed by JENNIFER MARINO on 09/12/23 [facility] 09-07-2023 [facility] Office Visit (ROBERT) MARIELENA VILLALTA ([id number]) 1960 M Date Time Provider Department 09/07/23 1:30 PM CARD REHAB PHASE 2 [facility] During your visit today, we recorded the following information about you: Jennifer Marino, Construction Technology Instructor 09/07/2023 1:41 PM Signed Cardiac Rehabilitation [facility] Supervising Physician: Dr. Holder Diagnosis: PTCA Phase: 2 Monitor: Yes Session Number: 3 Today's exercise session was comprised of a warm-up, aerobic conditioning phase, aerobic cool-down, and free weight resistance training. Patient tolerated prescribed exercise workload. Tele SR/SA without ectopic beats. Vitals WNL for patient. No chest discomfort. No medication changes. This is a hospital based cardiac rehab program. Patient working towards exercise goals by increasing exercise duration. Patient working towards education goal by attending education sessions in cardiac rehabilitation. Patient has verbalized understanding of advanced directives education topic and the relation to disease managment. Patient's Daily Exercise Log will be scanned into [employer] once it is completed. These can be viewed by going under the Scanned Documents tab and looking for documents labeled Cardiac Rehabilitation. Daily Exercise Logs contain exercise data such as, but not limited to modality, intensity, duration and frequency of exercise, along with vital signs pre-, during, and post-exercise. Refer to patient's paper medical record for ECG rhythm strips, physician prescribed Individualized Treatment Plan, and education sessions covered. Jennifer Marino Construction Technology Instructor Allergies As of Date: 09/07/2023 (Not on File) Date Reviewed: Never Reviewed Reason for Visit: Cardiac Rehab [3551] Primary Visit Diagnosis:S/P PTCA (percutaneous transluminal coronary angioplasty) [Z98.61] Problem List As Of Date: 09/07/2023 (None) Encounter Status:Closed by JENNIFER MARINO on 09/07/23 [facility] 09-05-2023 [facility] Office Visit (ROBERT) MARIELENA VILLALTA ([id number]) 1960 M Date Time Provider Department 09/05/23 1:30 PM CARD REHAB PHASE 2 [facility] During your visit today, we recorded the following information about you: Jennifer Marino, Construction Technology Instructor 09/05/2023 1:47 PM Signed Cardiac Rehabilitation [facility] Supervising Physician: Dr. Holder Diagnosis: PTCA Phase: 2 Monitor: Yes Session Number: 2 Today's exercise session was comprised of a warm-up, aerobic conditioning phase, aerobic cool-down, and free weight resistance training. Patient tolerated prescribed exercise workload. Tele SR/SA without ectopic beats. Vitals WNL for patient. No chest discomfort. No medication changes. This is a hospital based cardiac rehab program. Patient working towards exercise goals by increasing exercise intensity and duration. Patient working towards education goal by attending education sessions in cardiac rehabilitation. Patient has verbalized understanding of depression and heart disease education topic and the relation to disease managment. Patient's Daily Exercise Log will be scanned into [employer] once it is completed. These can be viewed by going under the Scanned Documents tab and looking for documents labeled Cardiac Rehabilitation. Daily Exercise Logs contain exercise data such as, but not limited to modality, intensity, duration and frequency of exercise, along with vital signs pre-, during, and post-exercise. Refer to patient's paper medical record for ECG rhythm strips, physician prescribed Individualized Treatment Plan, and education sessions covered. Jennifer Marino Construction Technology Instructor Allergies As of Date: 09/05/2023 (Not on File) Date Reviewed: Never Reviewed Reason for Visit: Cardiac Rehab [3551] Primary Visit Diagnosis:S/P PTCA (percutaneous transluminal coronary angioplasty) [Z98.61] Problem List As Of Date: 09/05/2023 (None) Encounter Status:Closed by JENNIFER MARINO on 09/05/23 [facility] 08-31-2023 [facility] Office Visit (ROBERT) MARIELENA VILLALTA ([id number]) 1960 M Date Time Provider Department 08/31/23 1:30 PM CARD REHAB PHASE 2 [facility] During your visit today, we recorded the following information about you: Jennifer Marino, Construction Technology Instructor 08/31/2023 1:48 PM Signed Cardiac Rehabilitation [facility] Program Supervising Physician: Pierre Kaplan Diagnosis: PTCA Phase: 2 Monitor: Yes Session Number: 1 Today's exercise session was comprised of a warm-up, aerobic conditioning phase, aerobic cool-down, and free weight resistance training. Patient tolerated prescribed exercise workload. Tele SR/SA without ectopic beats. Vitals WNL for patient. No chest discomfort. No medication changes. This is a hospital based cardiac rehab program. Patient working towards exercise goals by increasing exercise frequency, intensity and duration. Patient working towards education goal by attending education sessions in cardiac rehabilitation. Patient has verbalized understanding of exercise education topic and the relation to disease managment. Patient's Daily Exercise Log will be scanned into [employer] once it is completed. These can be viewed by going under the Scanned Documents tab and looking for documents labeled Cardiac Rehabilitation. Daily Exercise Logs contain exercise data such as, but not limited to modality, intensity, duration and frequency of exercise, along with vital signs pre-, during, and post-exercise. Refer to patient's paper medical record for ECG rhythm strips, physician prescribed Individualized Treatment Plan, and education sessions covered. Jennifer Marino Construction Technology Instructor Referring Provider: DONN MINOR [[id number]] Allergies As of Date: 08/31/2023 (Not on File) Date Reviewed: Never Reviewed Reason for Visit: Cardiac Rehab [3551] Primary Visit Diagnosis:S/P PTCA (percutaneous transluminal coronary angioplasty) [Z98.61] Problem List As Of Date: 08/31/2023 (None) Encounter Status:Closed by JENNIFER MARINO on 08/31/23 [facility] 08-30-2023 [facility] Office Visit (ROBERT) MARIELENA VILLALTA ([id number]) 1960 M Date Time Provider Department 08/30/23 1:00 PM [facility] During your visit today, we recorded the following information about you: Pulse Blood pressure Weight Height 58/minute 98/54 69.9 kg 1.753 m Johanna Wiseman, Construction Technology Instructor 08/30/2023 2:15 PM [facility] [place] Department of Cardiovascular Medicine Initial Assessment for Cardiac Rehab Marielena Villalta 08/30/2023 CHIEF COMPLAINT: Marielena Villalta is a 63 year old male seen today. Patient presents with: Cardiac Rehab Eval: Initial Assessment HISTORY OF PRESENT ILLNESS: No past medical history on file. No past surgical history on file. No family history on file. CURRENT MEDS: No current outpatient medications on file. No current facility-administered medications for this visit. ALLERGIES Not on File PHYSICAL EXAMINATION: BP 98/54 Pulse 58 Ht 5' 9 (1.75m) Wt 154 lb 1.6 oz (69.9kg) SpO2 98[RA]% BMI 22.75 kg/(m2). INDIVIDUAL TREATMENT PLAN Program Location: [facility] evaluation site : [facility] Cardiac Rehab Completed : [place] Program: Entry Phase II Primary Reason For Referral: PCI EXERCISE ASSESSMENT Current Exercise: Yes Type of Exercise: Aerobics;Strength Exercise Duration: 60 minutes (uses treadmill at home) Exercise Intensity: Moderate Exercise Equipment: Yes Exercise Limitations/Symptoms: No Assist Device: No Oxygen: No Stress Test: No 6 Minute Walk Test: Yes Date: 08/30/23 Distance (ft): 1375 Total Rest Time (seconds): 0 Lowest SPO2: 96 (RA) Peak Heart Rate BPM: 79 EXERCISE PLAN EXERCISE INTERVENTIONS Frequency: 3-5 Times Per Week Mode: Treadmill;Recumbent Stepper;Weights;Recum bent Bike;AirDyne Intensity: Within Set Target Heart Rate;Within Target Met Level;RPE of 3-5;RPE of 11-14 METS: 2-4 METS initially, can progress beyond 4 METS as tolerated as long as staying within THR and/or RPE. Target Heart Rate (BPM): 78-110 Workload: 50-70% age max heart rate RPE: 11-14 Initial Duration (minutes): 20 minutes Progression: 5 Minutes Every 2-3 Weeks as Tolerated;0.5 Mets Every 1-2 Weeks as Tolerated;Within Target Heart Rate;Within Target METS Level Resistance Training: Free Weights Training Start Date: 08/31/23 WT Intensity: Weight to Have Local Muscle Fatigue in 10-15 Reps With 2-3 Sets Education Needed: RPE;Equipment Orientation;Signs and Symptoms;Target Heart Rate Range;Hand Hygiene;Cleaning of Equipment;Warm Up/Cool Down;Safety Guidelines;Pulse Taking;Excerise Prescription;Exercise Considerations;Equipm ent orientation;Exercise Safety;Exercise Benefits (likes to use the gym, but is not knowledgeable on how to create a good workout) Patient Understands Intervention: Yes Please strictly adhere to exercise guidance/recommendati ons provided to you by the cardiac rehab staff. Please minimize time spent sedentary even on days that you exercise. *Please aim to accumulate physical activity throughout your day. This can be in as little as 6-pw-1-minute bouts of walking once per hour (accumulate 30-60 min of lmzxht-oi-jgqacuqd intensity exercise per day). *Your goal for the week (spread evenly across 7 days of the week) is to accumulate no less than 150 minutes of moderate intensity exercise/physical activity. For best exercise results, accumulate 300 minutes of moderate intensity exercise/physical activity for the week (spread evenly across 7 days of the week). *After attending at least 2-3 weeks of in-person cardiac rehab and when the cardiac rehab staff determines it is safe and you are aware and knowledgeable of the core components of your exercise training plan, please participate in exercise training on days not in cardiac rehab at intensities and durations no greater than what you perform in the cardiac rehab setting. Aerobic Exercise Training Progression: *Increase the duration of your uadwsu-dq-olyiioce-so mewhat hard intensity continuous aerobic exercise during your cardiac rehab sessions anywhere from 1 to 5 min every 2 to 3 weeks as tolerated until you are able to reach your target goal for consecutive exercise min per session. *Target goal per session is to achieve at least 60 min of consecutive aerobic exercise, not including dedicated time for warm up and cool down. *Exercise intensity that can be described as very hard, vigorous, peak, or maximal should not be performed at any time unless under medical supervision associated with exercise stress testing performed as part of standard of care. Resistance/Strength Training: Please engage in upper body vrwvw-vb-bmbuux (ROM) exercises before attempting loaded weightlifting. *You should be able to complete ROM exercise pain-free prior to attempting loaded (more content not included)... Normal [facility] Lyme Screen W/Reflex WBon LYME SCREEN Ab Negative Normal Negative [facility] Comment on above: Result Comment: Lyme antibodies not detected. Reflex testing is not indicated. No laboratory evidence of infection with B. burgdorferi (Lyme disease). Negative results may occur in patients recently infected (less than or equal to 14 days) with B. burgdorferi. If recent infection is suspected, repeat testing on a new sample collected in 7 to 14 days is recommended. Performed at: [facility] [id number] [employer] Trainer: Jairo Dodge PhD, Phone: [phone] Performed By: #### L [id number] #### [facility] [address] [place], [address] Thin prep Papanicolaou smear with manual screeningOrdered By: Avi Cárdenas on 03-21-2023 Thin prep Papanicolaou smear with manual screening Negative Negative [facility] Comment on above: Lyme antibodies not detected. Reflex testing is notindicated.No laboratory evidence of infection with B. burgdorferi(Lyme disease). Negative results may occur in patientsrecently infected (less than or equal to 14 days) with B.burgdorferi. If recent infection is suspected, repeattesting on a new sample collected in 7 to 14 days isrecommended.Performed at: - [facility] [id number] Director: Jairo Dodge PhD, Phone: [phone] Orthopedic Visit Reporton Orthopedic Visit Report [facility] [facility] [address] [place], [place] [address] OFFICE VISIT Date of Service: 02/27/23 MR#: [id number] Acct: [id number] Name: MARIELENA VILLALTA Rep #: [id number] : 1960 Provider: Dr. Navi vee MD Age/Sex: 62/M Location: [facility] Status: Signed Intake Vital Signs 12/06/22 22:04 Height 5 ft 9 in Weight: 155 lb BMI 22.8 BP 124/80 H Blood Pressure Location Rt brachial Position Sitting Respiration 18 Pulse 77 Pulse Source Doppler Temp 97.5 F L Pulse Oximetry (%) 99 Oxygen Delivery Method room air Intake Visit Reasons: BL SHOULDERS Chief Complaint: Chest Pain Is patient in pain?: Yes Pain scale (1-10): 6 Allergies Environmental Allergies: Uncoded Allergy (Verified 02/27/23 14:03) Other Medications melatonin 10 mg capsule 10 mg PO HS PRN 01/20/19 [History Confirmed 02/27/23] cimetidine 200 mg tablet (Tagamet HB) 200 mg PO QACHS 11/24/20 [History Confirmed 02/27/23] amlodipine 5 mg tablet 5 mg PO DAILY #90 tabs 01/30/22 [Rx Confirmed 02/27/23] atorvastatin 10 mg tablet 10 mg PO .3 x a week 90 days #36 tabs 01/30/22 [Rx Confirmed 02/27/23] lisinopril 10 mg tablet 10 mg PO DAILY #90 tabs 01/30/22 [Rx Confirmed 02/27/23] meclizine 12.5 mg tablet 12.5 mg PO TID PRN dizziness #60 tabs 03/29/22 [Rx Confirmed 02/27/23] alprazolam 0.5 mg tablet 0.5 mg PO BID PRN anxiety #60 tabs 09/04/22 [Rx Confirmed 02/27/23] amoxicillin 875 mg-potassium clavulanate 125 mg tablet 1 tab PO BID #20 tabs 11/20/22 [Rx Confirmed 02/27/23] promethazine 12.5 mg tablet 12.5 mg PO Q6H PRN nausea and vomiting #60 tabs 11/20/22 [Rx Confirmed 02/27/23] hydroxyzine HCl 10 mg tablet 10 mg PO TID-QID PRN anxiety #45 tabs 12/06/22 [Rx Confirmed 02/27/23] mupirocin 2 % topical ointment 1 applic topical TID #15 grams 12/07/22 [Rx Confirmed 02/27/23] PFSH Medical History Anxiety Colitis ELEVATED BP GERD (gastroesophageal reflux disease) HERNIA BILAT Hyperlipidemia Hypertension Normal colonoscopy Family History (Updated 02/27/23 @ 14:06 by Caridad Conde) Other Alcoholism Diabetes Heart disease High cholesterol Hypertension Pulmonary hypertension Social History (Updated 02/27/23 @ 14:05 by Caridad Conde) Smoking Status: Never smoker second hand exposure: Yes alcohol intake: never substance use type: does not use what type of physical activity do you participate in: running and yoga HPI BL SHOULDERS Details: Parts of this documentation were recorded by a scribe, this documentation accurately reflects the service provided and the decisions made by me, Dr. Navi Benjamin MD 02/27/23 [id number]. MARIELENA VILLALTA is a 62 year old M here today for right chest pain when working out, can do 6 mph, work up a sweat. Now trouble after 5 minutes last week, laboring and pain in the middle of the chest and laterallyt chest wall and on both sides. had a stress test 2 months ago , at [facility] - thinks he saw a blip per the patient. I don't have those results, was given nitro and if need it take. He went from being able to walk up about an hour on the treadmill to now only about 5 minutes he gets chest pain and pain radiating into the left arm. They prescribed a nitro he has never tried this when he was getting the pain. He has not had a recent echo or cardiac angio. No shoulder pain. No pain with lifting or overhead activities. Ortho Exam General General: Yes no acute distress Neurologic: Yes alert and Yes oriented x3 Psychologic: Yes reasonable and appropriate Right Shoulder Skin/Wound: Yes CDI, No ecchymosis, No erythema and No swelling Testing: Positive AROM-Forward Elevation 0-180 and PROM-External Rotation at 90 0-60; Negative Hawkin's, Neer's, Speed's, TTP Biceps, TTP AC Joint or Drop Arm Left Shoulder Skin/Wound: Yes CDI, No ecchymosis, No erythema and No swelling Testing: No Hawkin's, No Neer's, No Speed's, No TTP Biceps, No TTP AC Joint, Yes AROM-Forward Elevation 0-180 and Yes PROM-External Rotation at side 0-60 SHOULDER: Strength in terms of both shoulders forward elevation 5/5. No pain with range of motion testing of the shoulders. chest he has nonlocalized tenderness no obvious tenderness at the costochondral junctions either side. Normal chest excursion Coding Level of Care Code Off vis,new,level 3 Diagnoses Chest pain on exertion R07.9 Assessment and Plan Assessment and Plan (1) Chest pain on exertion: Status: Acute Plan: 62-year-old man this does not seem to be musculoskeletal related pain seems more like exertional chest pain comes on after 5 minutes on the treadmill and goes into his left arm in a classic fashion. He does have a grid trimmer and was prescribed nitro but has never tried could con (more content not included)... Normal [facility] Nasopharyngeal Cultureon NAC Staphylococcus lugdunensis Amount Growth 1+ Staphylococcus lugdunensis: REACTION cefOXitin Susc Islt Clindamycin Islt MICKEY 0.25 S Clindamycin.induced Susc Islt NEG Erythromycin Islt MICKEY >=8 R Gentamicin Islt MICKEY <=0.5 S levoFLOXacin Islt MICKEY 0.25 S Oxacillin Susc Islt <=0.25 S Tetracycline Islt MICKEY 2 S Vancomycin Islt MICKEY 4 S Normal [facility] Comment on above: Performed By: #### L 100.0100, M100.2000, L501.4020, L500.4050, L501.6750, L500.4100, M100.2500, L501.9520 #### [facility] [address] [place], [address] No Panel InformationOrdered By: Avi Cárdenas on 12-09-2022 Nasopharyngeal Culture Staphylococcus lugdunensis [facility] CBC W/Diff, Automatedon 11-22 Absolute Lymph 1.32 X10 3/uL Normal 0.83-4.51 [facility] Comment on above: Performed By: #### L 100.0100, M100.2000, L501.4020, L500.4050, L501.6750, L500.4100, M100.2500, L501.9520 #### [facility] [address] [place], [place], [id number] Absolute Neut 2.8 X10 3/uL Normal 2.0-7.7 [facility] Comment on above: Performed By: #### L 100.0100, M100.2000, L501.4020, L500.4050, L501.6750, L500.4100, M100.2500, L501.9520 #### [facility] [address] [place],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 [place] Work Phone: [facility] Comment on above: S/P coronary artery stent placement (Primary Dx) Start: 10-03-2023 End: 10-03-2023 ambulatory AVI L CÁRDENAS Facility:[facility] Start: 09-28-2023 End: 09-28-2023 ambulatory AVI L CÁRDENAS Facility:[facility] Start: 09-28-2023 End: 09-28-2023 Patient encounter procedure Card Rehab Phase 2 [place] Work Phone: [facility] Comment on above: S/P coronary artery stent placement (Primary Dx) Start: 09-26-2023 End: 09-26-2023 ambulatory AVI L CÁRDENAS Facility:[facility] Start: 09-26-2023 End: 09-26-2023 Patient encounter procedure Card Rehab Phase 2 [place] Work Phone: [facility] Comment on above: S/P PTCA (percutaneo us transluminal coronary angioplasty) (Primary Dx) Start: 09-21-2023 End: 09-21-2023 ambulatory AVI L CÁRDENAS Facility:[facility] Start: 09-21-2023 End: 09-21-2023 Patient encounter procedure Card Rehab Phase 2 [place] Work Phone: [facility] Comment on above: S/P coronary artery stent placement (Primary Dx) Start: 09-19-2023 End: 09-19-2023 ambulatory AVI L CÁRDENAS Facility:[facility] Start: 09-19-2023 End: 09-19-2023 Patient encounter procedure Card Rehab Phase 2 [place] Work Phone: [facility] Comment on above: S/P PTCA (percutaneo us transluminal coronary angioplasty) (Primary Dx) Start: 09-17-2023 ambulatory AVI L CÁRDENAS [facility] it:[facility] Start: 09-12-2023 End: 09-12-2023 ambulatory AVI L CÁRDENAS Facility:[facility] Start: 09-12-2023 End: 09-12-2023 Patient encounter procedure Card Rehab Phase 2 [place] Work Phone: [facility] Comment on above: S/P PTCA (percutaneo us transluminal coronary angioplasty) (Primary Dx) Start: 09-07-2023 End: 09-07-2023 ambulatory AVI CÁRDENAS Facility:[facility] Start: 09-07-2023 End: 09-07-2023 Patient encounter procedure Card Rehab Phase 2 [place] Work Phone: [facility] Comment on above: S/P PTCA (percutaneo us transluminal coronary angioplasty) (Primary Dx) Start: 09-05-2023 End: 09-05-2023 ambulatory AVI CÁRDENAS Facility:[facility] Start: 08-31-2023 End: 08-31-2023 ambulatory DONN MINOR Facility:[facility] Start: 08-30-2023 End: 08-30-2023 ambulatory AVI CÁRDENAS Facility:[facility] Start: 08-30-2023 End: 08-30-2023 Patient encounter procedure Card Exercise [facility] Work Phone: [facility] Comment on above: Coronary arterioscle rosis after percutaneous transluminal coronary angioplasty (PTCA) (Primary Dx) Start: 03-21-2023 End: 03-21-2023 Patient encounter procedure MD Navi Benjamin Work Phone: [facility] Work Phone: Start: 03-21-2023 End: 03-21-2023 ambulatory Avi Cárdenas BLADE [employer]ER [facility] Work Phone: Start: 02-27-2023 End: 02-27-2023 ambulatory Navi Benjamin Facility:[facility] Start: 02-27-2023 End: 02-27-2023 Patient encounter procedure MD Navi Benjmain Work Phone: [facility] Work Phone: Start: 12-06-2022 End: 12-06-2022 Patient encounter procedure [facility] Start: 12-06-2022 End: 12-06-2022 ambulatory Avi Cárdenas NP [facility] Work Phone: Start: 06-29-2020 End: 06-29-2020 Subsequent hospital visit by physician [facility] Comment on above: Pain in left hand [M 79.642] Procedures Date Procedure Procedure Detail Performing Clinician Start: 03-26-2020 Colonoscopy Card [employer] Work Phone: History of placement of stent for coronary artery disease S/P coronary artery stent placement Card [employer] Work Phone: History of placement of stent for coronary artery disease S/P coronary artery stent placement Card [employer] Work Phone: History of placement of stent for coronary artery disease S/P coronary artery stent placement Card [employer] Work Phone: Investigation of transfusion reaction Nasopharyngeal Culture Plan of Treatment Date Care Activity Detail Author Start: 06-22-2023 Covid-19 Vaccine () Covid-19 Vaccine () [facility] Start: 02-27-2023 Patient referral [facility] Work Phone: Start: 10-22-2022 Depression Assessment Depression Assessment [facility] Start: 03-26-2021 Colonoscopy Colonoscopy [facility] Start: 03-26-2021 Colorectal Cancer Screening Colorectal Cancer Screening [facility] Start: 03-26-2021 Screening for malignant neoplasm of colon [facility] Start: 06-22-2020 Influenza vaccination INFLUENZA (#1) [facility] Start: 2019 RSV Vaccine (1 - 1-dose 60+ series) RSV Vaccine (1 - 1-dose 60+ series) [facility] Start: 2014 PROSTATE CANCER SCREENING DISCUSSION PROSTATE CANCER SCREENING DISCUSSION [facility] Start: 2014 Prostate specific antigen measurement Prostate Cancer Screening Discussion [facility] Start: 2009 SHINGRIX VACCINE (1 of 2) SHINGRIX VACCINE (1 of 2) [facility] Start: 2009 Tuberculosis screening COLORECTAL CANCER SCREENING,SEE MODIFIER [facility] Start: 2004 Cologuard (FIT-DNA) Cologuard (FIT-DNA) [facility] Start: [address] Colonography [facility] Start: 2004 DIABETES SCREEN DIABETES SCREEN [facility] Start: 2004 Diabetes Screening Diabetes Screening [facility] Start: 2004 Fecal Occult Blood Fecal Occult Blood [facility] Start: 2004 Screening for malignant neoplasm of colon [facility] Start: 2004 Sigmoidoscopy Sigmoidoscopy [facility] Start: 1994 Lipid 1996 panel - Serum or Plasma Lipid Screening [facility] Start: 1994 Lipid panel Lipid Screening [facility] Start: 1994 LIPID SCREEN LIPID SCREEN [facility] Start: 1978 Urine microalbumin profile [facility] Start: 1977 HEPATITIS C SCREENING HEPATITIS C SCREENING [facility] Start: 1977 Hepatitis C screening Hepatitis C Screening [facility] Start: 1977 HIV SCREENING HIV SCREENING [facility] Start: 1977 HIV screening HIV Screening [facility] Patient referral [facility] Work Phone: [facility] P[facility] Date Payer Category Payer Self-pay [id number] 2019 Private Health Insurance [facility] CHOICE PLUS [id number] 2019-Present O [id number] 2019 Private Health Insurance [id number] 2008 Private Health Insurance [id number] 1959 Unknown [id number] [id number] 1959 Unknown [id number] [id number] 1959 Unknown [id number] [id number] 1959 Unknown [id number] [id number] 1959 Unknown [id number] [id number] 1959 Unknown [id number] [id number] 1959 Unknown [id number] [id number] 1959 Unknown [id number] [id number] Unknown [id number] [id number] Unknown [id number] [id number] Unknown [id number] [id number] Social History Date Type Detail Facility Tobacco smoking stat NHIS Unknown if ever smoked [facility] Start: 1960 Sex Assigned At Not on file [facility] Exposure to SARS-CoV -2 (event) Not sure [facility] Start: 03-29-2022 End: 02-27-2023 Tobacco smoking status NHIS Unknown if ever smoked [facility] Start: 1960 Sex Assigned At Male [facility] Start: 08-30-2023 History of Social function [facility] Start: 08-30-2023 Area Deprivation Index [facility] National Score (1-10 0), lower number is lower risk 53 [facility] Clinical Notes 08-30-2023 to 11-09-2023 Jennifer Marino, Construction Technology Instructor - 10/10/2023 1:53 PM Josh Arauz RN - 10/05/2023 1:33 PM Jenni Vizcarra EKG Tech - 09/28/2023 1:37 PM EST Note Date & Type Note Facility 11-09-2023 Note HNO ID: [id number] Author: PIERRE HUFFMAN, DO Service: ? Author Type: Construction Technology Instructor Type: Progress Notes Filed: 11/30/2023 17:08 Note Text: -------- Attestation signed by Pierre Huffman DO at 11/30/2023 5:08 PM I have reviewed the detailed Individualized Treatment Plan assessment and plan for the patient as described above and agree with the recommendations. Pierre Huffman DO, [facility] Clinical and Preventive Cardiology Department of Medicine and Division of Cardiology, [facility] Staff It Business Systems Analyst, [place] Department of Cardiovascular Medicine/Heart and Vascular [place], [facility] Clinical bilingual administrative assistant Profressor of Medicine, [facility] - [facility] -------- Cardiac Rehabilitation Hospital Based Program Supervising Physician: Pierre Kaplan Diagnosis: PTCA Phase: 2 Monitor: Yes Session Number: 20 Today's exercise session was comprised of a warm-up, aerobic conditioning phase, aerobic cool-down, and free weight resistance training. Patient tolerated prescribed exercise workload. Tele SR-ST without ectopic beats. Vitals WNL for patient. No chest discomfort. No medication changes. This is a hospital based cardiac rehab program. Patient working towards exercise goals by sustaining exercise intensity and duration. Patient working towards education goal by attending education sessions in cardiac rehabilitation. Patient has verbalized understanding of med diet education topic and the relation to disease managment. Patient's Daily Exercise Log will be scanned into [employer] once it is completed. These can be viewed by going under the Scanned Documents tab and looking for documents labeled Cardiac Rehabilitation. Daily Exercise Logs contain exercise data such as, but not limited to modality, intensity, duration and frequency of exercise, along with vital signs pre-, during, and post-exercise. Refer to patient's paper medical record for ECG rhythm strips, physician prescribed Individualized Treatment Plan, and education sessions covered. Jennifer Marino, Construction Technology Instructor Heart and Vascular [place] Department of Cardiovascular Medicine Discharge Assessment for Cardiac Rehab Marielena Villalta 11/09/2023 CHIEF COMPLAINT: Marielena Villalta is a 63 year old male seen today. Patient presents with: Cardiac Rehab: Discharge Patient completed optimal therapeutic dose of cardiac rehab: Yes Patient demonstrated clinically significant increase in functional capacity: Yes Patient achieved/maintained optimal blood pressure control: Yes Patient achieved clinical significant decrease in symptoms of depression: Yes Current smoking status: Never OUTCOMES: Initial Asmt Outcome 08/30/2023 Resting BP 98/54 Mediterranean Diet Score 5 PHQ9 Score 6 Discharge Asmt Outcome 11/08/2023 Completed Ex. Sessions 20 Weight 150.6 BMI 22.3 No past medical history on file. No past surgical history on file. No family history on file. CURRENT MEDS: No current outpatient medications on file. No current facility-administered medications for this visit. ALLERGIES Not on File PHYSICAL EXAMINATION: BP 124/58 Pulse 55 Wt 150 lb 9.6 oz (68.3kg) INDIVIDUAL TREATMENT PLAN Program Location: [place] Program: Exit Phase II EXERCISE ASSESSMENT Current Exercise: Yes Type of Exercise: Walk;Strength Exercise Duration: 40 minutes Exercise Intensity: Moderate Exercise Equipment: Yes Exercise Limitations/Symptoms: No Assist Device: No Oxygen: No Stress Test: No 6 Minute Walk Test: Yes Date: 08/30/23 Distance (ft): 1375 EXERCISE DISCHARGE PLAN Frequency: 3-5 Times Per Week Mode: Treadmill;Cycle;Recumbent Stepper;Elliptical;AirDyne;Arm Ergometer;Recumbent Bike;Weights;Walking Intensity: Within Set Target Heart Rate METS: 4.7 may exceed with in target heart rate Target Heart Rate (BPM): 78-110 Workload: 50-70% age max heart rate RPE: 11-14 out of 6-20 scale Initial Duration (minutes): 25 minutes Progression: Within Target Heart Rate Resistance Training: Free weights; currently using 5 lb weights Training Start Date: 08/31/23 WT Intensity: Weight to Have Local Muscle Fatigue in 10-15 Reps With 2-3 Sets Education Completed: RPE;Equipment Orientation;Target Heart Rate Range;Signs and Symptoms;Hand Hygiene;Cleaning of Equipment;Warm Up/Cool Down;Safety Guidelines;Exercise Prescription;Exercise Considerations;Equipment orientation;Exercise Safety;Exercise Benefits Patient Understands Intervention: Yes EXERCISE GOAL Distance on 6 Min Walk Test : 1746 (Patient exceeded goal of 1513 ft) Increase in Estimated METS: 4.7 (Patient exceeded goal of 4.3 METS) (more content not included)... [facility] 11-07-2023 Note HNO ID: [id number] Author: JENNI BUSBY, stock control clerk Service: ? Author Type: Sexual Assault Counselor Type: Progress Notes Filed: 11/07/2023 13:34 Note Text: Cardiac Rehabilitation Hospital Based Program Supervising Physician: Pierre Kaplan Diagnosis: PTCA Phase: 2 Monitor: Yes Session Number: 19 Today's exercise session was comprised of a warm-up, aerobic conditioning phase, aerobic cool-down, and free weight resistance training. Patient tolerated prescribed exercise workload. Tele SR-ST without ectopic beats. Vitals WNL for patient. No chest discomfort. No medication changes. This is a hospital based cardiac rehab program. Patient working towards exercise goals by increasing exercise intensity. Patient working towards education goal by attending education sessions in cardiac rehabilitation. Patient has verbalized understanding of Heart failure education topic and the relation to disease managment. Patient's Daily Exercise Log will be scanned into [employer] once it is completed. These can be viewed by going under the Scanned Documents tab and looking for documents labeled Cardiac Rehabilitation. Daily Exercise Logs contain exercise data such as, but not limited to modality, intensity, duration and frequency of exercise, along with vital signs pre-, during, and post-exercise. Refer to patient's paper medical record for ECG rhythm strips, physician prescribed Individualized Treatment Plan, and education sessions covered. Jenni Busby, Construction Technology Instructor [facility] 11-02-2023 Note HNO ID: [id number] Author: DUNG GLEZ, Construction Technology Instructor Service: ? Author Type: Construction Technology Instructor Type: Progress Notes Filed: 11/02/2023 13:39 Note Text: Cardiac Rehabilitation Hospital Based Program Supervising Physician: Pierre Kaplan Diagnosis: PTCA Phase: 2 Monitor: Yes Session Number: 18 Today's exercise session was comprised of a warm-up, aerobic conditioning phase, aerobic cool-down, and free weight resistance training. Patient tolerated prescribed exercise workload. Tele SR-ST without ectopic beats. Vitals WNL for patient. No chest discomfort. No medication changes. This is a hospital based cardiac rehab program. Patient working towards exercise goals by increasing exercise intensity and duration. Patient working towards education goal by attending education sessions in cardiac rehabilitation. Patient has verbalized understanding of Angina, NTG, [place] education topic and the relation to disease managment. Patient's Daily Exercise Log will be scanned into [employer] once it is completed. These can be viewed by going under the Scanned Documents tab and looking for documents labeled Cardiac Rehabilitation. Daily Exercise Logs contain exercise data such as, but not limited to modality, intensity, duration and frequency of exercise, along with vital signs pre-, during, and post-exercise. Refer to patient's paper medical record for ECG rhythm strips, physician prescribed Individualized Treatment Plan, and education sessions covered. Dung Glez, Construction Technology Instructor [facility] 10-31-2023 Note HNO ID: [id number] Author: JENNI BUSBY, stock control clerk Service: ? Author Type: Sexual Assault Counselor Type: Progress Notes Filed: 10/31/2023 13:37 Note Text: Cardiac Rehabilitation Hospital Based Program Supervising Physician: Pierre Kaplan Diagnosis: PTCA Phase: 2 Monitor: Yes Session Number: 17 Today's exercise session was comprised of a warm-up, aerobic conditioning phase, aerobic cool-down, and free weight resistance training. Patient tolerated prescribed exercise workload. Tele SB-SR without ectopic beats. Vitals WNL for patient. No chest discomfort. No medication changes. This is a hospital based cardiac rehab program. Patient working towards exercise goals by increasing exercise intensity. Patient working towards education goal by attending education sessions in cardiac rehabilitation. Patient has verbalized understanding of Coronary arteries education topic and the relation to disease managment. Patient's Daily Exercise Log will be scanned into [employer] once it is completed. These can be viewed by going under the Scanned Documents tab and looking for documents labeled Cardiac Rehabilitation. Daily Exercise Logs contain exercise data such as, but not limited to modality, intensity, duration and frequency of exercise, along with vital signs pre-, during, and post-exercise. Refer to patient's paper medical record for ECG rhythm strips, physician prescribed Individualized Treatment Plan, and education sessions covered. Jenni Busby, Construction Technology Instructor [facility] 10-26-2023 Note HNO ID: [id number] Author: JENNI BUSBY EKG Tech Service: ? Author Type: Sexual Assault Counselor Type: Progress Notes Filed: 10/26/2023 13:37 Note Text: Cardiac Rehabilitation [facility] Supervising Physician: Pierre Kaplan Diagnosis: PCTA Phase: 2 Monitor: Yes Session Number: 16 Today's exercise session was comprised of a warm-up, aerobic conditioning phase, aerobic cool-down, and free weight resistance training. Patient tolerated prescribed exercise workload. Tele SB-SR without ectopic beats. Vitals WNL for patient. No chest discomfort. No medication changes. This is a hospital based cardiac rehab program. Patient working towards exercise goals by increasing exercise duration. Patient working towards education goal by attending education sessions in cardiac rehabilitation. Patient has verbalized understanding of Depression education topic and the relation to disease managment. Patient's Daily Exercise Log will be scanned into [employer] once it is completed. These can be viewed by going under the Scanned Documents tab and looking for documents labeled Cardiac Rehabilitation. Daily Exercise Logs contain exercise data such as, but not limited to modality, intensity, duration and frequency of exercise, along with vital signs pre-, during, and post-exercise. Refer to patient's paper medical record for ECG rhythm strips, physician prescribed Individualized Treatment Plan, and education sessions covered. Jenni Busby, Construction Technology Instructor [facility] [place] Department of Cardiovascular Medicine 30 DAY Assessment for Cardiac Rehab Marielena Villalta 10/26/2023 CHIEF COMPLAINT: Marielena Villalta is a 63 year old male seen today. Patient presents with: Cardiac Rehab: 60 day assessment HISTORY OF PRESENT ILLNESS: No past medical history on file. No past surgical history on file. No family history on file. CURRENT MEDS: No current outpatient medications on file. No current facility-administered medications for this visit. ALLERGIES Not on File PHYSICAL EXAMINATION: BP 102/64 Pulse 53 Wt 150 lb 8 oz (68.3kg) INDIVIDUAL TREATMENT PLAN Program Location: [place] EXERCISE REASSESSMENT Current Exercise at Rehab: Patient is currently exercising 2x's a week for 32 minutes per session on the treadmill Treadmill METS : 4.3 RT Weight : 4 lbs Home Exercise: Yes Mode: walking on the treadmill Intensity: moderate Duration: 2x's a week; 30-40 minutes per session Current Symptoms: Asymptomatic Education Completed: RPE, Equipment Orientation, Signs and Symptoms, Target Heart Rate Range, Hand Hygiene, Cleaning of Equipment, Warm Up/Cool Down, Safety Guidelines, Exercise Prescription, Exercise Considerations, Equipment orientation, Exercise Safety, Exercise Benefits EXERCISE INTERVENTION/PRESCRIPTION Exercise Prescription: see outline below Aerobic: Yes Distance: 32 minutes (minutes) Frequency: 3-5 Per Week Mode: Treadmill, Cycle, Recumbent Stepper, Elliptical, AirDyne, Arm Ergometer, Recumbent Bike, Weights, Walking Intensity: 50-70% age max heart rate METS: 4.3 may exceed with in target heart rate Target Heart Rate (BPM): 78-110 Workload: 50-70% age max heart rate RPE: 11-14 out of 6-20 scale Initial Duration (minutes): 25 minutes Progression: 0.5 Mets Every 1-2 Weeks as Tolerated Resistance Training: Free weights; currently using 4 lb weights WT Intensity: Weight to Have Local Muscle Fatigue in 10-15 Reps With 2-3 Sets Minutes per Week of Exercise : 144 (between cardiac rehab and home exercise) Education Needed: (educations completed) Patient Understands Intervention: Yes EXERCISE GOAL Distance on 6 Min Walk Test : 1513 (which is a 10% increase from initial 6MWT) Increase in Estimated METS: 4.3 (which is a 40% increase from initial MET level. Patient is currently exercising at a 4.3 MEt level) Duration of Exer Min Per Session: 40 (Patient is currently exercising for 32 minutes per session) Minutes Per Week of Exercise : Minimum of 150 minutes of aerobic exercise per week between cardiac rehab and home exercise. Aim for 250-300 minutes per week. Home Exercise Plan: Patient should have set home exercise plan post cardiac rehab Other: Increase Strength, Increase Endurance NUTRITION REASSESSMENT Actual Mediterranean Diet Score: 5 Mediterranean Diet Score: less than or equal to 8 Poor-many changes needed: Yes Current Diet: Mediterranean Alcohol Servings: 2 per week (2 drinks a week) Education Completed: Reading Labels, Portion Control, Decreased Fat Intake, Increase Fruit/Vegetables, Heart Healthy Eating for Life, Weight Loss Guidelines, Heart Healthy Nutrition NUTRITION INTERVENTION/GOAL Treatment Plan: Diet Log, Cardiac Rehab, Nutrition Classes Goal: Improve Mediterranean Diet Score Education Needed: Shop Healthy/Cook Healthy, Cholesterol Lowering Strategies, (more content not included)... [facility] 10-24-2023 Note HNO ID: [id number] Author: Jennifer Marino, Construction Technology Instructor Service: ? Author Type: Construction Technology Instructor Type: Progress Notes Filed: 10/24/2023 1:43 PM Note Text: Cardiac Rehabilitation Hospital Based Program Supervising Physician: Pierre Kaplan Diagnosis: PTCA Phase: 2 Monitor: Yes Session Number: 15 Today's exercise session was comprised of a warm-up, aerobic conditioning phase, aerobic cool-down, and free weight resistance training. Patient tolerated prescribed exercise workload. Tele SB-SR without ectopic beats. Vitals WNL for patient. No chest discomfort. No medication changes. This is a hospital based cardiac rehab program. Patient working towards exercise goals by sustaining exercise intensity and duration. Patient working towards education goal by attending education sessions in cardiac rehabilitation. Patient has verbalized understanding of stress management education topic and the relation to disease managment. Patient's Daily Exercise Log will be scanned into [employer] once it is completed. These can be viewed by going under the Scanned Documents tab and looking for documents labeled Cardiac Rehabilitation. Daily Exercise Logs contain exercise data such as, but not limited to modality, intensity, duration and frequency of exercise, along with vital signs pre-, during, and post-exercise. Refer to patient's paper medical record for ECG rhythm strips, physician prescribed Individualized Treatment Plan, and education sessions covered. Jennifer Marino, Construction Technology Instructor [facility] 10-19-2023 Note HNO ID: [id number] Author: Jennifer Marino, Construction Technology Instructor Service: ? Author Type: Construction Technology Instructor Type: Progress Notes Filed: 10/19/2023 1:49 PM Note Text: Cardiac Rehabilitation Hospital Based Program Supervising Physician: Pierre Kaplan Diagnosis: PTCA Phase: 2 Monitor: Yes Session Number: 14 Today's exercise session was comprised of a warm-up, aerobic conditioning phase, aerobic cool-down, and free weight resistance training. Patient tolerated prescribed exercise workload. Tele SB-SR without ectopic beats. Vitals WNL for patient. No chest discomfort. No medication changes. This is a hospital based cardiac rehab program. Patient working towards exercise goals by increasing exercise intensity. Patient working towards education goal by attending education sessions in cardiac rehabilitation. Patient has verbalized understanding of exercise education topic and the relation to disease managment. Patient's Daily Exercise Log will be scanned into [employer] once it is completed. These can be viewed by going under the Scanned Documents tab and looking for documents labeled Cardiac Rehabilitation. Daily Exercise Logs contain exercise data such as, but not limited to modality, intensity, duration and frequency of exercise, along with vital signs pre-, during, and post-exercise. Refer to patient's paper medical record for ECG rhythm strips, physician prescribed Individualized Treatment Plan, and education sessions covered. Jennifer Marino, Construction Technology Instructor [facility] 10-17-2023 Note HNO ID: [id number] Author: Jennifer Marino, Construction Technology Instructor Service: ? Author Type: Construction Technology Instructor Type: Progress Notes Filed: 10/17/2023 1:46 PM Note Text: Cardiac Rehabilitation Hospital Based Program Supervising Physician: Pierre Kaplan Diagnosis: PTCA Phase: 2 Monitor: Yes Session Number: 13 Today's exercise session was comprised of a warm-up, aerobic conditioning phase, aerobic cool-down, and free weight resistance training. Patient tolerated prescribed exercise workload. Tele SB-SR without ectopic beats. Vitals WNL for patient. No chest discomfort. No medication changes. This is a hospital based cardiac rehab program. Patient working towards exercise goals by sustaining exercise intensity and duration. Patient working towards education goal by attending education sessions in cardiac rehabilitation. Patient has verbalized understanding of cardiac AANDP education topic and the relation to disease managment. Patient's Daily Exercise Log will be scanned into [employer] once it is completed. These can be viewed by going under the Scanned Documents tab and looking for documents labeled Cardiac Rehabilitation. Daily Exercise Logs contain exercise data such as, but not limited to modality, intensity, duration and frequency of exercise, along with vital signs pre-, during, and post-exercise. Refer to patient's paper medical record for ECG rhythm strips, physician prescribed Individualized Treatment Plan, and education sessions covered. Jennifer Marino Construction Technology Instructor [facility] 10-12-2023 Note HNO ID: [id number] Author: Jenni Busby, stock control clerk Service: ? Author Type: Sexual Assault Counselor Type: Progress Notes Filed: 10/12/2023 1:51 PM Note Text: Cardiac Rehabilitation Hospital Based Program Supervising Physician: Pierre Kaplan Diagnosis: PTCA Phase: 2 Monitor: Yes Session Number: 12 Today's exercise session was comprised of a warm-up, aerobic conditioning phase, aerobic cool-down, and free weight resistance training. Patient tolerated prescribed exercise workload. Tele SB-SR without ectopic beats. Vitals WNL for patient. No chest discomfort. No medication changes. This is a hospital based cardiac rehab program. Patient working towards exercise goals by sustaining exercise intensity and duration. Patient working towards education goal by attending education sessions in cardiac rehabilitation. Patient has verbalized understanding of Weight Management education topic and the relation to disease managment. Patient's Daily Exercise Log will be scanned into [employer] once it is completed. These can be viewed by going under the Scanned Documents tab and looking for documents labeled Cardiac Rehabilitation. Daily Exercise Logs contain exercise data such as, but not limited to modality, intensity, duration and frequency of exercise, along with vital signs pre-, during, and post-exercise. Refer to patient's paper medical record for ECG rhythm strips, physician prescribed Individualized Treatment Plan, and education sessions covered. Jenni Busby, Construction Technology Instructor [facility] 10-10-2023 Note HNO ID: [id number] Author: Jennifer Marino, Construction Technology Instructor Service: ? Author Type: Construction Technology Instructor Type: Progress Notes Filed: 10/10/2023 1:57 PM Note Text: Cardiac Rehabilitation Hospital Based Program Supervising Physician: Pierre Kaplan Diagnosis: PTCA Phase: 2 Monitor: Yes Session Number: 11 Today's exercise session was comprised of a warm-up, aerobic conditioning phase, aerobic cool-down, and free weight resistance training. Patient tolerated prescribed exercise workload. Tele SB-SR without ectopic beats. Vitals WNL for patient. No chest discomfort. No medication changes. This is a hospital based cardiac rehab program. Patient working towards exercise goals by sustaining exercise intensity and duration. Patient working towards education goal by attending education sessions in cardiac rehabilitation. Patient has verbalized understanding of diabetes education topic and the relation to disease managment. Patient's Daily Exercise Log will be scanned into [employer] once it is completed. These can be viewed by going under the Scanned Documents tab and looking for documents labeled Cardiac Rehabilitation. Daily Exercise Logs contain exercise data such as, but not limited to modality, intensity, duration and frequency of exercise, along with vital signs pre-, during, and post-exercise. Refer to patient's paper medical record for ECG rhythm strips, physician prescribed Individualized Treatment Plan, and education sessions covered. Jennifer Marino Construction Technology Instructor [facility] 10-10-2023 History of Presen t illness Narrative Images from the original note were not included. Cardiac Rehabilitation Hospital Based Program Supervising Physician: Pierre Kaplan Diagnosis: PTCA Phase: 2 Monitor: Yes Session Number: 11 Today's exercise session was comprised of a warm-up, aerobic conditioning phase, aerobic cool-down, and free weight resistance training. Patient tolerated prescribed exercise workload. Tele SB-SR without ectopic beats. Vitals WNL for patient. No chest discomfort. No medication changes. This is a hospital based cardiac rehab program. Patient working towards exercise goals by sustaining exercise intensity and duration. Patient working towards education goal by attending education sessions in cardiac rehabilitation. Patient has verbalized understanding of diabetes education topic and the relation to disease managment. Patient's Daily Exercise Log will be scanned into [employer] once it is completed. These can be viewed by going under the Scanned Documents tab and looking for documents labeled Cardiac Rehabilitation. Daily Exercise Logs contain exercise data such as, but not limited to modality, intensity, duration and frequency of exercise, along with vital signs pre-, during, and post-exercise. Refer to patient's paper medical record for ECG rhythm strips, physician prescribed Individualized Treatment Plan, and education sessions covered. Jennifer Marino Construction Technology Instructor documented in this encounter [facility] 10-05-2023 Note HNO ID: [id number] Author: Josh Aponte RN Service: ? Author Type: Registered Nurse Type: Progress Notes Filed: 10/05/2023 1:35 PM Note Text: Cardiac Rehabilitation Hospital Based Program Supervising Physician: Pierre Kaplan Diagnosis: PCI w/stent Phase: 2 Monitor: Yes Session Number: 10 Today's exercise session was comprised of a warm-up, aerobic conditioning phase, aerobic cool-down, and free weight resistance training. Patient tolerated prescribed exercise workload. Tele SB-SR without ectopic beats. Vitals WNL for patient. No chest discomfort. No medication changes. This is a hospital based cardiac rehab program. Patient working towards exercise goals by increasing exercise intensity and duration. Patient working towards education goal by attending education sessions in cardiac rehabilitation. Patient has verbalized understanding of blood pressure education topic and the relation to disease managment. Patient's Daily Exercise Log will be scanned into [employer] once it is completed. These can be viewed by going under the Scanned Documents tab and looking for documents labeled Cardiac Rehabilitation. Daily Exercise Logs contain exercise data such as, but not limited to modality, intensity, duration and frequency of exercise, along with vital signs pre-, during, and post-exercise. Refer to patient's paper medical record for ECG rhythm strips, physician prescribed Individualized Treatment Plan, and education sessions covered. Josh Aponte RN [facility] 10-04-2023 History of Presen t illness Narrative Images from the original note were not included. Cardiac Rehabilitation Hospital Based Program Supervising Physician: Pierre Kaplan Diagnosis: PCI w/stent Phase: 2 Monitor: Yes Session Number: 10 Today's exercise session was comprised of a warm-up, aerobic conditioning phase, aerobic cool-down, and free weight resistance training. Patient tolerated prescribed exercise workload. Tele SB-SR without ectopic beats. Vitals WNL for patient. No chest discomfort. No medication changes. This is a hospital based cardiac rehab program. Patient working towards exercise goals by increasing exercise intensity and duration. Patient working towards education goal by attending education sessions in cardiac rehabilitation. Patient has verbalized understanding of blood pressure education topic and the relation to disease managment. Patient's Daily Exercise Log will be scanned into [employer] once it is completed. These can be viewed by going under the Scanned Documents tab and looking for documents labeled Cardiac Rehabilitation. Daily Exercise Logs contain exercise data such as, but not limited to modality, intensity, duration and frequency of exercise, along with vital signs pre-, during, and post-exercise. Refer to patient's paper medical record for ECG rhythm strips, physician prescribed Individualized Treatment Plan, and education sessions covered. Josh Aponte RN documented in this encounter [facility] 10-03-2023 Note HNO ID: [id number] Author: Jennifer Marino, Construction Technology Instructor Service: ? Author Type: Construction Technology Instructor Type: Progress Notes Filed: 10/03/2023 1:52 PM Note Text: Cardiac Rehabilitation Hospital Based Program Supervising Physician: Pierre Kaplan Diagnosis: PTCA Phase: 2 Monitor: Yes Session Number: 9 Today's exercise session was comprised of a warm-up, aerobic conditioning phase, aerobic cool-down, and free weight resistance training. Patient tolerated prescribed exercise workload. Tele SR without ectopic beats. Vitals WNL for patient. No chest discomfort. No medication changes. This is a hospital based cardiac rehab program. Patient working towards exercise goals by increasing exercise intensity and duration. Patient working towards education goal by attending education sessions in cardiac rehabilitation. Patient has verbalized understanding of risk factors education topic and the relation to disease managment. Patient's Daily Exercise Log will be scanned into [employer] once it is completed. These can be viewed by going under the Scanned Documents tab and looking for documents labeled Cardiac Rehabilitation. Daily Exercise Logs contain exercise data such as, but not limited to modality, intensity, duration and frequency of exercise, along with vital signs pre-, during, and post-exercise. Refer to patient's paper medical record for ECG rhythm strips, physician prescribed Individualized Treatment Plan, and education sessions covered. Jennifer Marino, Construction Technology Instructor [facility] 09-28-2023 Note HNO ID: [id number] Author: Jenni Busby stock control clerk Service: ? Author Type: Sexual Assault Counselor Type: Progress Notes Filed: 09/28/2023 1:39 PM Note Text: Cardiac Rehabilitation Hospital Based Program Supervising Physician: Pierre Kaplan Diagnosis: PTCA Phase: 2 Monitor: Yes Session Number: 8 Today's exercise session was comprised of a warm-up, aerobic conditioning phase, aerobic cool-down, and free weight resistance training. Patient tolerated prescribed exercise workload. Tele SR without ectopic beats. Vitals WNL for patient. No chest discomfort. No medication changes. This is a hospital based cardiac rehab program. Patient working towards exercise goals by increasing exercise intensity. Patient working towards education goal by attending education sessions in cardiac rehabilitation. Patient has verbalized understanding of Portion control education topic and the relation to disease managment. Patient's Daily Exercise Log will be scanned into [employer] once it is completed. These can be viewed by going under the Scanned Documents tab and looking for documents labeled Cardiac Rehabilitation. Daily Exercise Logs contain exercise data such as, but not limited to modality, intensity, duration and frequency of exercise, along with vital signs pre-, during, and post-exercise. Refer to patient's paper medical record for ECG rhythm strips, physician prescribed Individualized Treatment Plan, and education sessions covered. Jenni Busby, Construction Technology Instructor [facility] [place] Department of Cardiovascular Medicine 30 DAY Assessment for Cardiac Rehab Marielena Villalta 09/28/2023 CHIEF COMPLAINT: Marielena Villalta is a 63 year old male seen today. Patient presents with: Cardiac Rehab: 30 day assessment HISTORY OF PRESENT ILLNESS: PCTA No past medical history on file. No past surgical history on file. No family history on file. CURRENT MEDS: No current outpatient medications on file. No current facility-administered medications for this visit. ALLERGIES Not on File PHYSICAL EXAMINATION: BP 98/62 Pulse 63 Wt 152 lb 11.2 oz (69.3kg) INDIVIDUAL TREATMENT PLAN Program Location: [place] EXERCISE REASSESSMENT Current Exercise at Rehab: Patient is currently exercising 2x's a week for 30 minutes per session on the treadmill Treadmill METS : 3.6 RT Weight : 4 lbs Home Exercise: Yes Mode: Walking on the treadmill Intensity: low Duration: 1x a week; 35-40 minutes per session Current Symptoms: Asymptomatic Education Completed: RPE, Equipment Orientation, Signs and Symptoms, Target Heart Rate Range, Hand Hygiene, Cleaning of Equipment, Warm Up/Cool Down, Safety Guidelines, Exercise Prescription, Exercise Considerations, Equipment orientation, Exercise Safety, Exercise Benefits EXERCISE INTERVENTION/PRESCRIPTION Exercise Prescription: see outline below Aerobic: Yes Distance: 30 minutes (minutes) Frequency: 3-5 Per Week Mode: Treadmill, Cycle, Recumbent Stepper, Elliptical, AirDyne, Arm Ergometer, Recumbent Bike, Weights, Walking Intensity: 50-70% age max heart rate METS: 3.6-4.3 may exceed with in target heart rate Target Heart Rate (BPM): 78-110 Workload: 50-70% age max heart rate RPE: 11-14 out of 6-20 scale Initial Duration (minutes): 25 minutes Progression: 0.5 Mets Every 1-2 Weeks as Tolerated Resistance Training: Free weights; currently using 4 lb weights WT Intensity: Weight to Have Local Muscle Fatigue in 10-15 Reps With 2-3 Sets Minutes per Week of Exercise : 100 (between cardiac rehab and home exercise) Education Needed: (educations completed) EXERCISE GOAL Distance on 6 Min Walk Test : 1513 (which is a 10% increase from initial 6MWT) Increase in Estimated METS: 4.3 (which is a 40% increase from initial MET level. Patient is currenlty exercising at a 3.6 MEt level) Duration of Exer Min Per Session: 40 (Patient is currently exercising for 30 minutes per session) Minutes Per Week of Exercise : Minimum of 150 minutes of aerobic exercise per week between cardiac rehab and home exercise. Home Exercise Plan: To exercise at least 2-4 days per week on the days not in cardiac rehab to collectively obtain 5-7 days per week of aerobic exercise between CR and Home Other: Increase Endurance, Increase Strength NUTRITION REASSESSMENT Actual Mediterranean Diet Score: 5 Mediterranean Diet Score: less than or equal to 8 Poor-many changes needed: Yes Current Diet: Mediterranean Alcohol Servings: 2 per week (2 beers a week) Education Completed: Reading Labels, Portion Control NUTRITION INTERVENTION/GOAL Treatment Plan: Diet Log, Cardiac Rehab, Nutrition Classes Goal: Improve Mediterranean Diet Score Education Needed: Decreased Fat Intake, Increase Fruit/Vegetables, Heart Healthy Eating for Life, Low Sodium Diet, Weight Loss Guidelines, Cholesterol Lowering Strategies, Latisha (more content not included)... [facility] 09-28-2023 History of Presen t illness Narrative Images from the original note were not included. Card[facility] Rehabilitation [facility] Based Program Supervising Physician: Pierre Kaplan Diagnosis: PTCA Phase: 2 Monitor: Yes Session Number: 8 Today's exercise session was comprised of a warm-up, aerobic conditioning phase, aerobic cool-down, and free weight resistance training. Patient tolerated prescribed exercise workload. Tele SR without ectopic beats. Vitals WNL for patient. No chest discomfort. No medication changes. This is a hospital based cardiac rehab program. Patient working towards exercise goals by increasing exercise intensity. Patient working towards education goal by attending education sessions in cardiac rehabilitation. Patient has verbalized understanding of Portion control education topic and the relation to disease managment. Patient's Daily Exercise Log will be scanned into [employer] once it is completed. These can be viewed by going under the Scanned Documents tab and looking for documents labeled Cardiac Rehabilitation. Daily Exercise Logs contain exercise data such as, but not limited to modality, intensity, duration and frequency of exercise, along with vital signs pre-, during, and post-exercise. Refer to patient's paper medical record for ECG rhythm strips, physician prescribed Individualized Treatment Plan, and education sessions covered. Jenni Busby, Construction Technology Instructor [facility] [place] Department of Cardiovascular Medicine 30 DAY Assessment for Cardiac Rehab Marielena Villalta 09/28/2023 CHIEF COMPLAINT: Marielena Villalta is a 63 year old male seen today. Patient presents with: Cardiac Rehab: 30 day assessment HISTORY OF PRESENT ILLNESS: PCTA No past medical history on file. No past surgical history on file. No family history on file. CURRENT MEDS: No current outpatient medications on file. No current facility-administered medications for this visit. ALLERGIES Not on File PHYSICAL EXAMINATION: BP 98/62 Pulse 63 Wt 152 lb 11.2 oz (69.3kg) INDIVIDUAL TREATMENT PLAN Program Location: [place] EXERCISE REASSESSMENT Current Exercise at Rehab: Patient is currently exercising 2x's a week for 30 minutes per session on the treadmill Treadmill METS : 3.6 RT Weight : 4 lbs Home Exercise: Yes Mode: Walking on the treadmill Intensity: low Duration: 1x a week; 35-40 minutes per session Current Symptoms: Asymptomatic Education Completed: RPE, Equipment Orientation, Signs and Symptoms, Target Heart Rate Range, Hand Hygiene, Cleaning of Equipment, Warm Up/Cool Down, Safety Guidelines, Exercise Prescription, Exercise Considerations, Equipment orientation, Exercise Safety, Exercise Benefits EXERCISE INTERVENTION/PRESCRIPTION Exercise Prescription: see outline below Aerobic: Yes Distance: 30 minutes (minutes) Frequency: 3-5 Per Week Mode: Treadmill, Cycle, Recumbent Stepper, Elliptical, AirDyne, Arm Ergometer, Recumbent Bike, Weights, Walking Intensity: 50-70% age max heart rate METS: 3.6-4.3 may exceed with in target heart rate Target Heart Rate (BPM): 78-110 Workload: 50-70% age max heart rate RPE: 11-14 out of 6-20 scale Initial Duration (minutes): 25 minutes Progression: 0.5 Mets Every 1-2 Weeks as Tolerated Resistance Training: Free weights; currently using 4 lb weights WT Intensity: Weight to Have Local Muscle Fatigue in 10-15 Reps With 2-3 Sets Minutes per Week of Exercise : 100 (between cardiac rehab and home exercise) Education Needed: (educations completed) EXERCISE GOAL Distance on 6 Min Walk Test : 1513 (which is a 10% increase from initial 6MWT) Increase in Estimated METS: 4.3 (which is a 40% increase from initial MET level. Patient is currenlty exercising at a 3.6 MEt level) Duration of Exer Min Per Session: 40 (Patient is currently exercising for 30 minutes per session) Minutes Per Week of Exercise : Minimum of 150 minutes of aerobic exercise per week between cardiac rehab and home exercise. Home Exercise Plan: To exercise at least 2-4 days per week on the days not in cardiac rehab to collectively obtain 5-7 days per week of aerobic exercise between CR and Home Other: Increase Endurance, Increase Strength NUTRITION REASSESSMENT Actual Mediterranean Diet Score: 5 Mediterranean Diet Score: less than or equal to 8 Poor-many changes needed: Yes Current Diet: Mediterranean Alcohol Servings: 2 per week (2 beers a week) Education Completed: Reading Labels, Portion Control NUTRITION INTERVENTION/GOAL Treatment Plan: Diet Log, Cardiac Rehab, Nutrition Classes Goal: Improve Mediterranean Diet Score Education Needed: Decreased Fat Intake, Increase Fruit/Vegetables, Heart Healthy Eating for Life, Low Sodium Diet, Weight Loss Guidelines, Cholesterol Lowering Strategies, Shop Healthy/Cook Healthy, Heart Healthy Nutrition Patient Understands Intervention: Yes OTHER CORE COMPONENTS/RISK FACTORS REASSESSMENT Hyperlipidemia: No Medication Compliance: Yes Diabetes: No Hypertension: No Tobacco Use: Never Tobacco Type: (never smoked) Education Completed: Advanced Directives, Diaphragmatic Breathing CORE COMPONENTS INTERVENTION Hyperlipidemia: Continue Medication, Weight Loss, Dietary Modification, Exercise Weight Management: Dietary Modification, Exercise Hypertension: Continue Medication, Weight Loss, Dietary Modification, Stress Management, Keep BP Log, Exercise Education: see outline below Weight: 152.7 BMI: <25 (BMI = 22.6) Tobacco Intervention: (never smoked) Education Needed: Cardiac A&P, Diabetic Education, Smoking Cessation, Cardiac Medications, Cardiac Tests, Cardiac Treatments, Cardiac Risk Factors, You're Heart, Angina, [place], Weight Mgmt Patient Understands Intervention: Yes CORE COMPONENTS IMPROVEMENT GOAL Improvement in Knowledge Test Score : (not given at [facility]) Hyperlipidemia: LDL < 100 or <70 For High Risk Patients, Knows Appropriate Level, Knows Current Level Weight: Maintain BMI: <25 (BMI = 22.6) Waist: Maintain Hypertension: BP <130/<80, Monitor BP at Home, Low Sodium Diet Tobacco: (never smoked) PSYCHOSOCIAL REASSESSMENT Stress: Moderate Family Support: Yes ( and son) Fall Risk: No Assist Device: No Behavorial Specialist: No Education Completed: Stress Management, Anxiety Management, Emotions, Anger Management, Behavior private branch exchange service advisor, Relaxation Techniques, Depression Management PSYCHOSOCIAL INTERVENTION PCP or Mental Health Provider Referral for Depression: No Goal: Improved PHQ9, Attend Stress Management Sessions, Continue Heart Healthy Behavior Change Patient Understands Intervention: Yes PSYCHOSOCIAL GOAL Goal: Improved PHQ9, Attend Stress Management Sessions, Continue Heart Healthy Behavior Change FOLLOW UP: Jenni Busby Construction Technology Instructor documented in this encounter [facility] 09-26-2023 Note HNO ID: [id number] Author: Jennifer Marino, Construction Technology Instructor Service: ? Author Type: Construction Technology Instructor Type: Progress Notes Filed: 09/26/2023 1:51 PM Note Text: Cardiac Rehabilitation [facility] Program Supervising Physician: Pierre Kaplan Diagnosis: PTCA Phase: 2 Monitor: Yes Session Number: 7 Today's exercise session was comprised of a warm-up, aerobic conditioning phase, aerobic cool-down, and free weight resistance training. Patient tolerated prescribed exercise workload. Tele SR without ectopic beats. Vitals WNL for patient. No chest discomfort. No medication changes. This is a hospital based cardiac rehab program. Patient working towards exercise goals by increasing exercise duration. Patient working towards education goal by attending education sessions in cardiac rehabilitation. Patient has verbalized understanding of reading food labels education topic and the relation to disease managment. Patient's Daily Exercise Log will be scanned into [employer] once it is completed. These can be viewed by going under the Scanned Documents tab and looking for documents labeled Cardiac Rehabilitation. Daily Exercise Logs contain exercise data such as, but not limited to modality, intensity, duration and frequency of exercise, along with vital signs pre-, during, and post-exercise. Refer to patient's paper medical record for ECG rhythm strips, physician prescribed Individualized Treatment Plan, and education sessions covered. Jennifer Marino Construction Technology Instructor [facility] 09-26-2023 History of Presen t illness Narrative Images from the original note were not included. Cardiac Rehabilitation Hospital Based Program Supervising Physician: Pierre Kaplan Diagnosis: PTCA Phase: 2 Monitor: Yes Session Number: 7 Today's exercise session was comprised of a warm-up, aerobic conditioning phase, aerobic cool-down, and free weight resistance training. Patient tolerated prescribed exercise workload. Tele SR without ectopic beats. Vitals WNL for patient. No chest discomfort. No medication changes. This is a hospital based cardiac rehab program. Patient working towards exercise goals by increasing exercise duration. Patient working towards education goal by attending education sessions in cardiac rehabilitation. Patient has verbalized understanding of reading food labels education topic and the relation to disease managment. Patient's Daily Exercise Log will be scanned into [employer] once it is completed. These can be viewed by going under the Scanned Documents tab and looking for documents labeled Cardiac Rehabilitation. Daily Exercise Logs contain exercise data such as, but not limited to modality, intensity, duration and frequency of exercise, along with vital signs pre-, during, and post-exercise. Refer to patient's paper medical record for ECG rhythm strips, physician prescribed Individualized Treatment Plan, and education sessions covered. Jennifer Marino Construction Technology Instructor documented in this encounter [facility] 09-21-2023 Note HNO ID: [id number] Author: Josh Aponte RN Service: ? Author Type: Registered Nurse Type: Progress Notes Filed: 09/21/2023 1:51 PM Note Text: Cardiac Rehabilitation Hospital Based Program Supervising Physician: Pierre Kaplan Diagnosis: PCI w/stent Phase: 2 Monitor: Yes Session Number: 6 Today's exercise session was comprised of a warm-up, aerobic conditioning phase, aerobic cool-down, and free weight resistance training. Patient tolerated prescribed exercise workload. Tele SR without ectopic beats. Vitals WNL for patient. No chest discomfort. No medication changes. This is a hospital based cardiac rehab program. Patient working towards exercise goals by increasing exercise intensity. Patient working towards education goal by attending education sessions in cardiac rehabilitation. Patient has verbalized understanding of CHF education topic and the relation to disease managment. Patient's Daily Exercise Log will be scanned into [employer] once it is completed. These can be viewed by going under the Scanned Documents tab and looking for documents labeled Cardiac Rehabilitation. Daily Exercise Logs contain exercise data such as, but not limited to modality, intensity, duration and frequency of exercise, along with vital signs pre-, during, and post-exercise. Refer to patient's paper medical record for ECG rhythm strips, physician prescribed Individualized Treatment Plan, and education sessions covered. Josh Aponte RN [facility] 09-20-2023 History of Presen t illness Narrative Images from the original note were not included. Cardiac Rehabilitation [facility] Based Program Supervising Physician: Pierre Kaplan Diagnosis: PCI w/stent Phase: 2 Monitor: Yes Session Number: 6 Today's exercise session was comprised of a warm-up, aerobic conditioning phase, aerobic cool-down, and free weight resistance training. Patient tolerated prescribed exercise workload. Tele SR without ectopic beats. Vitals WNL for patient. No chest discomfort. No medication changes. This is a hospital based cardiac rehab program. Patient working towards exercise goals by increasing exercise intensity. Patient working towards education goal by attending education sessions in cardiac rehabilitation. Patient has verbalized understanding of CHF education topic and the relation to disease managment. Patient's Daily Exercise Log will be scanned into [employer] once it is completed. These can be viewed by going under the Scanned Documents tab and looking for documents labeled Cardiac Rehabilitation. Daily Exercise Logs contain exercise data such as, but not limited to modality, intensity, duration and frequency of exercise, along with vital signs pre-, during, and post-exercise. Refer to patient's paper medical record for ECG rhythm strips, physician prescribed Individualized Treatment Plan, and education sessions covered. Josh Aponte RN documented in this encounter [facility] 09-19-2023 Note HNO ID: [id number] Author: Jennifer Marino, Construction Technology Instructor Service: ? Author Type: Construction Technology Instructor Type: Progress Notes Filed: 09/19/2023 1:52 PM Note Text: Cardiac Rehabilitation Hospital Based Program Supervising Physician: Dr. Arnett Diagnosis: PTCA Phase: 2 Monitor: Yes Session Number: 5 Today's exercise session was comprised of a warm-up, aerobic conditioning phase, aerobic cool-down, and free weight resistance training. Patient tolerated prescribed exercise workload. Tele SR/SA without ectopic beats. Vitals WNL for patient. No chest discomfort. No medication changes. This is a hospital based cardiac rehab program. Patient working towards exercise goals by sustaining exercise intensity and duration. Patient working towards education goal by attending education sessions in cardiac rehabilitation. Patient has verbalized understanding of heart valves education topic and the relation to disease managment. Patient's Daily Exercise Log will be scanned into [employer] once it is completed. These can be viewed by going under the Scanned Documents tab and looking for documents labeled Cardiac Rehabilitation. Daily Exercise Logs contain exercise data such as, but not limited to modality, intensity, duration and frequency of exercise, along with vital signs pre-, during, and post-exercise. Refer to patient's paper medical record for ECG rhythm strips, physician prescribed Individualized Treatment Plan, and education sessions covered. Jennifer Marino, Construction Technology Instructor [facility] 09-19-2023 History of Presen t illness Narrative Images from the original note were not included. Cardiac Rehabilitation Hospital Based Program Supervising Physician: Dr. Arnett Diagnosis: PTCA Phase: 2 Monitor: Yes Session Number: 5 Today's exercise session was comprised of a warm-up, aerobic conditioning phase, aerobic cool-down, and free weight resistance training. Patient tolerated prescribed exercise workload. Tele SR/SA without ectopic beats. Vitals WNL for patient. No chest discomfort. No medication changes. This is a hospital based cardiac rehab program. Patient working towards exercise goals by sustaining exercise intensity and duration. Patient working towards education goal by attending education sessions in cardiac rehabilitation. Patient has verbalized understanding of heart valves education topic and the relation to disease managment. Patient's Daily Exercise Log will be scanned into [employer] once it is completed. These can be viewed by going under the Scanned Documents tab and looking for documents labeled Cardiac Rehabilitation. Daily Exercise Logs contain exercise data such as, but not limited to modality, intensity, duration and frequency of exercise, along with vital signs pre-, during, and post-exercise. Refer to patient's paper medical record for ECG rhythm strips, physician prescribed Individualized Treatment Plan, and education sessions covered. Jennifer Marino Construction Technology Instructor documented in this encounter [facility] 09-12-2023 Note HNO ID: [id number] Author: Jennifer Marino, Construction Technology Instructor Service: ? Author Type: Construction Technology Instructor Type: Progress Notes Filed: 09/12/2023 1:39 PM Note Text: Cardiac Rehabilitation Hospital Based Program Supervising Physician: Michael Tubbs Diagnosis: PTCA Phase: 2 Monitor: Yes Session Number: 4 Today's exercise session was comprised of a warm-up, aerobic conditioning phase, aerobic cool-down, and free weight resistance training. Patient tolerated prescribed exercise workload. Tele SR/SA without ectopic beats. Vitals WNL for patient. No chest discomfort. No medication changes. This is a hospital based cardiac rehab program. Patient working towards exercise goals by increasing exercise intensity and duration. Patient working towards education goal by attending education sessions in cardiac rehabilitation. Patient has verbalized understanding of coronary arteries education topic and the relation to disease managment. Patient's Daily Exercise Log will be scanned into [employer] once it is completed. These can be viewed by going under the Scanned Documents tab and looking for documents labeled Cardiac Rehabilitation. Daily Exercise Logs contain exercise data such as, but not limited to modality, intensity, duration and frequency of exercise, along with vital signs pre-, during, and post-exercise. Refer to patient's paper medical record for ECG rhythm strips, physician prescribed Individualized Treatment Plan, and education sessions covered. Jennifer Marino Construction Technology Instructor [facility] 09-12-2023 History of Presen t illness Narrative Images from the original note were not included. Cardiac Rehabilitation Hospital Based Program Supervising Physician: Michael Tubbs Diagnosis: PTCA Phase: 2 Monitor: Yes Session Number: 4 Today's exercise session was comprised of a warm-up, aerobic conditioning phase, aerobic cool-down, and free weight resistance training. Patient tolerated prescribed exercise workload. Tele SR/SA without ectopic beats. Vitals WNL for patient. No chest discomfort. No medication changes. This is a hospital based cardiac rehab program. Patient working towards exercise goals by increasing exercise intensity and duration. Patient working towards education goal by attending education sessions in cardiac rehabilitation. Patient has verbalized understanding of coronary arteries education topic and the relation to disease managment. Patient's Daily Exercise Log will be scanned into [employer] once it is completed. These can be viewed by going under the Scanned Documents tab and looking for documents labeled Cardiac Rehabilitation. Daily Exercise Logs contain exercise data such as, but not limited to modality, intensity, duration and frequency of exercise, along with vital signs pre-, during, and post-exercise. Refer to patient's paper medical record for ECG rhythm strips, physician prescribed Individualized Treatment Plan, and education sessions covered. Jennifer Marino Construction Technology Instructor documented in this encounter [facility] 09-07-2023 Note HNO ID: [id number] Author: Jennifer Marino Construction Technology Instructor Service: ? Author Type: Construction Technology Instructor Type: Progress Notes Filed: 09/07/2023 1:41 PM Note Text: Cardiac Rehabilitation Hospital Based Program Supervising Physician: Dr. Holder Diagnosis: PTCA Phase: 2 Monitor: Yes Session Number: 3 Today's exercise session was comprised of a warm-up, aerobic conditioning phase, aerobic cool-down, and free weight resistance training. Patient tolerated prescribed exercise workload. Tele SR/SA without ectopic beats. Vitals WNL for patient. No chest discomfort. No medication changes. This is a hospital based cardiac rehab program. Patient working towards exercise goals by increasing exercise duration. Patient working towards education goal by attending education sessions in cardiac rehabilitation. Patient has verbalized understanding of advanced directives education topic and the relation to disease managment. Patient's Daily Exercise Log will be scanned into [employer] once it is completed. These can be viewed by going under the Scanned Documents tab and looking for documents labeled Cardiac Rehabilitation. Daily Exercise Logs contain exercise data such as, but not limited to modality, intensity, duration and frequency of exercise, along with vital signs pre-, during, and post-exercise. Refer to patient's paper medical record for ECG rhythm strips, physician prescribed Individualized Treatment Plan, and education sessions covered. Jennifer Marino Construction Technology Instructor [facility] 09-07-2023 History of Presen t illness Narrative Images from the original note were not included. Cardiac Rehabilitation Hospital Based Program Supervising Physician: Dr. Holder Diagnosis: PTCA Phase: 2 Monitor: Yes Session Number: 3 Today's exercise session was comprised of a warm-up, aerobic conditioning phase, aerobic cool-down, and free weight resistance training. Patient tolerated prescribed exercise workload. Tele SR/SA without ectopic beats. Vitals WNL for patient. No chest discomfort. No medication changes. This is a hospital based cardiac rehab program. Patient working towards exercise goals by increasing exercise duration. Patient working towards education goal by attending education sessions in cardiac rehabilitation. Patient has verbalized understanding of advanced directives education topic and the relation to disease managment. Patient's Daily Exercise Log will be scanned into [employer] once it is completed. These can be viewed by going under the Scanned Documents tab and looking for documents labeled Cardiac Rehabilitation. Daily Exercise Logs contain exercise data such as, but not limited to modality, intensity, duration and frequency of exercise, along with vital signs pre-, during, and post-exercise. Refer to patient's paper medical record for ECG rhythm strips, physician prescribed Individualized Treatment Plan, and education sessions covered. Jennifer Marino Construction Technology Instructor documented in this encounter [facility] 09-05-2023 Note HNO ID: [id number] Author: Jennifer Marino Construction Technology Instructor Service: ? Author Type: Construction Technology Instructor Type: Progress Notes Filed: 09/05/2023 1:47 PM Note Text: Cardiac Rehabilitation Hospital Based Program Supervising Physician: Dr. Holder Diagnosis: PTCA Phase: 2 Monitor: Yes Session Number: 2 Today's exercise session was comprised of a warm-up, aerobic conditioning phase, aerobic cool-down, and free weight resistance training. Patient tolerated prescribed exercise workload. Tele SR/SA without ectopic beats. Vitals WNL for patient. No chest discomfort. No medication changes. This is a hospital based cardiac rehab program. Patient working towards exercise goals by increasing exercise intensity and duration. Patient working towards education goal by attending education sessions in cardiac rehabilitation. Patient has verbalized understanding of depression and heart disease education topic and the relation to disease managment. Patient's Daily Exercise Log will be scanned into [employer] once it is completed. These can be viewed by going under the Scanned Documents tab and looking for documents labeled Cardiac Rehabilitation. Daily Exercise Logs contain exercise data such as, but not limited to modality, intensity, duration and frequency of exercise, along with vital signs pre-, during, and post-exercise. Refer to patient's paper medical record for ECG rhythm strips, physician prescribed Individualized Treatment Plan, and education sessions covered. Jennifer Marino Construction Technology Instructor [facility] 08-31-2023 Note HNO ID: [id number] Author: Jennifer Marino, Construction Technology Instructor Service: ? Author Type: Construction Technology Instructor Type: Progress Notes Filed: 08/31/2023 1:48 PM Note Text: Cardiac Rehabilitation Hospital Based Program Supervising Physician: Pierre Kaplan Diagnosis: PTCA Phase: 2 Monitor: Yes Session Number: 1 Today's exercise session was comprised of a warm-up, aerobic conditioning phase, aerobic cool-down, and free weight resistance training. Patient tolerated prescribed exercise workload. Tele SR/SA without ectopic beats. Vitals WNL for patient. No chest discomfort. No medication changes. This is a hospital based cardiac rehab program. Patient working towards exercise goals by increasing exercise frequency, intensity and duration. Patient working towards education goal by attending education sessions in cardiac rehabilitation. Patient has verbalized understanding of exercise education topic and the relation to disease managment. Patient's Daily Exercise Log will be scanned into [employer] once it is completed. These can be viewed by going under the Scanned Documents tab and looking for documents labeled Cardiac Rehabilitation. Daily Exercise Logs contain exercise data such as, but not limited to modality, intensity, duration and frequency of exercise, along with vital signs pre-, during, and post-exercise. Refer to patient's paper medical record for ECG rhythm strips, physician prescribed Individualized Treatment Plan, and education sessions covered. Jennifer Marino Construction Technology Instructor [facility] 08-30-2023 Note HNO ID: [id number] Author: Johanna Wiseman, Construction Technology Instructor Service: ? Author Type: Construction Technology Instructor Type: Progress Notes Filed: 08/30/2023 2:15 PM Note Text: -------- Attestation signed by Pierre Huffman DO at 09/03/2023 3:20 PM I have reviewed the detailed Individualized Treatment Plan assessment and plan for the patient as described above and agree with the recommendations. Pierre Huffman DO, FACC, FAC Clinical and Preventive Cardiology Department of Medicine and Division of Cardiology, [facility] Staff It Business Systems Analyst, [place] Department of Cardiovascular Medicine/Heart and Vascular [place], [facility] Clinical bilingual administrative assistant Profressor of Medicine, [facility] - [facility] -------- Heart and Vascular [place] Department of Cardiovascular Medicine Initial Assessment for Cardiac Rehab Marielena Villalta 08/30/2023 CHIEF COMPLAINT: Marielena Villalta is a 63 year old male seen today. Patient presents with: Cardiac Rehab Eval: Initial Assessment HISTORY OF PRESENT ILLNESS: No past medical history on file. No past surgical history on file. No family history on file. CURRENT MEDS: No current outpatient medications on file. No current facility-administered medications for this visit. ALLERGIES Not on File PHYSICAL EXAMINATION: BP 98/54 Pulse 58 Ht 5' 9 (1.75m) Wt 154 lb 1.6 oz (69.9kg) SpO2 98[RA]% BMI 22.75 kg/(m2). INDIVIDUAL TREATMENT PLAN Program Location: [place] [facility] evaluation site : [facility] Cardiac Rehab Completed : [place] Program: Entry Phase II Primary Reason For Referral: PCI EXERCISE ASSESSMENT Current Exercise: Yes Type of Exercise: Aerobics;Strength Exercise Duration: 60 minutes (uses treadmill at home) Exercise Intensity: Moderate Exercise Equipment: Yes Exercise Limitations/Symptoms: No Assist Device: No Oxygen: No Stress Test: No 6 Minute Walk Test: Yes Date: 08/30/23 Distance (ft): 1375 Total Rest Time (seconds): 0 Lowest SPO2: 96 (RA) Peak Heart Rate BPM: 79 EXERCISE PLAN EXERCISE INTERVENTIONS Frequency: 3-5 Times Per Week Mode: Treadmill;Recumbent Stepper;Weights;Recumbent Bike;AirDyne Intensity: Within Set Target Heart Rate;Within Target Met Level;RPE of 3-5;RPE of 11-14 METS: 2-4 METS initially, can progress beyond 4 METS as tolerated as long as staying within THR and/or RPE. Target Heart Rate (BPM): 78-110 Workload: 50-70% age max heart rate RPE: 11-14 Initial Duration (minutes): 20 minutes Progression: 5 Minutes Every 2-3 Weeks as Tolerated;0.5 Mets Every 1-2 Weeks as Tolerated;Within Target Heart Rate;Within Target METS Level Resistance Training: Free Weights Training Start Date: 08/31/23 WT Intensity: Weight to Have Local Muscle Fatigue in 10-15 Reps With 2-3 Sets Education Needed: RPE;Equipment Orientation;Signs and Symptoms;Target Heart Rate Range;Hand Hygiene;Cleaning of Equipment;Warm Up/Cool Down;Safety Guidelines;Pulse Taking;Excerise Prescription;Exercise Considerations;Equipment orientation;Exercise Safety;Exercise Benefits (likes to use the gym, but is not knowledgeable on how to create a good workout) Patient Understands Intervention: Yes Please strictly adhere to exercise guidance/recommendations provided to you by the cardiac rehab staff. Please minimize time spent sedentary even on days that you exercise. *Please aim to accumulate physical activity throughout your day. This can be in as little as 1-of-6-minute bouts of walking once per hour (accumulate 30-60 min of rhjbzd-is-szewaufq intensity exercise per day). *Your goal for the week (spread evenly across 7 days of the week) is to accumulate no less than 150 minutes of moderate intensity exercise/physical activity. For best exercise results, accumulate 300 minutes of moderate intensity exercise/physical activity for the week (spread evenly across 7 days of the week). *After attending at least 2-3 weeks of in-person cardiac rehab and when the cardiac rehab staff determines it is safe and you are aware and knowledgeable of the core components of your exercise training plan, please participate in exercise training on days not in cardiac rehab at intensities and durations no greater than what you perform in the cardiac rehab setting. Aerobic Exercise Training Progression: *Increase the duration of your cuognz-am-whjykmpy-somewhat hard intensity continuous aerobic exercise during your cardiac rehab sessions anywhere from 1 to 5 min every 2 to 3 weeks as tolerated until you are able to reach your target goal for consecutive exercise min per session. *Target goal per session is to achieve at (more content not included)... [facility] Evaluation note Diagnosis Onset Date Anxiety acute Hypertension chronic Maxillary sinusitis acute Otitis media, right acute Chest pain on exertion acute Nasal sore [facility] Work Phone: Evaluation note* Diagnosis Onset Date Resolution Status Chest pain on exertion acute Rash in adult acute Tick bite of axillary region [facility] Work Phone: Evaluation note* Diagnosis Coronary arteriosclerosis after percutaneous transluminal coronary angioplasty (PTCA)- [facility] Diagnosis S/P PTCA (percutaneous transluminal coronary angioplasty)- Primary Postsurgical percutaneous transluminal coronary angioplasty status [facility] Diagnosis S/P PTCA (percutaneous transluminal coronary angioplasty)- Primary Postsurgical percutaneous transluminal coronary angioplasty status [facility] Diagnosis S/P PTCA (percutaneous transluminal coronary angioplasty)- Primary Postsurgical percutaneous transluminal coronary angioplasty status [facility] Diagnosis S/P coronary artery stent placement- Primary Postsurgical percutaneous transluminal coronary angioplasty status [facility] Diagnosis S/P PTCA (percutaneous transluminal coronary angioplasty)- Primary Postsurgical percutaneous transluminal coronary angioplasty status [facility] Diagnosis S/P coronary artery stent placement- Primary Postsurgical percutaneous transluminal coronary angioplasty status [facility] Diagnosis S/P coronary artery stent placement- Primary Postsurgical percutaneous transluminal coronary angioplasty status [facility] Diagnosis S/P PTCA (percutaneous transluminal coronary angioplasty)- Primary Postsurgical percutaneous transluminal coronary angioplasty status documented in this encounter [facility] Summary Purpose Family History No Family History Records Found Relationship Condition Age at Onset Recorded Date/T rosaline Not Specified Diabetes mellitus Unknown High blood cholesterol Unknown Cardiac disease Unknown Hypertension Unknown Relationship Condition Age at Onset Recorded Date/T rosaline Not Specified Diabetes mellitus Unknown High blood cholesterol Unknown Alcoholism Unknown Pulmonary hypertension Unknown Cardiac disease Unknown Hypertension Unknown Advance Directives No Advanced Directives Records FoundNo Advanced Directives Records FoundNo Advanced Directives Records FoundNo Advanced Directives Records Found Chief Complaint and Reason for Visit Chief Complaint Anxiety) HgA1c Sore throat Shortness of breath & Chest complaints Reason for Visit Anxiety Hypertension Maxillary sinusitis Otitis media, right Chest pain on exertion Nasal sore Chief Complaint BL SHOULDERS Possible tick bite/arm pit Reason for Visit Chest pain on exerti on Rash in adult Tick bite of axillary region Additional Source Comments Source Comments (unrecognize d section and content) In the event this informatio n is protected by the Federal Confidentiality of Alcohol and Drug Abuse Patient Records regulations: The Federal rules restrict any use of the information to criminally investigate or prosecute any alcohol or drug abuse patient.[facility] event this information is protected by the Federal Confidentiality of Alcohol and Drug Abuse Patient Records regulations: The Federal rules restrict any use of the information to criminally investigate or prosecute any alcohol or drug abuse patient.[facility] the event this information is protected by the Federal Confidentiality of Alcohol and Drug Abuse Patient Records regulations: The Federal rules restrict any use of the information to criminally investigate or prosecute any alcohol or drug abuse patient.[facility] the event this information is protected by the Federal Confidentiality of Alcohol and Drug Abuse Patient Records regulations: The Federal rules restrict any use of the information to criminally investigate or prosecute any alcohol or drug abuse patient.[facility] the event this information is protected by the Federal Confidentiality of Alcohol and Drug Abuse Patient Records regulations: The Federal rules restrict any use of the information to criminally investigate or prosecute any alcohol or drug abuse patient.[facility] the event this information is protected by the Federal Confidentiality of Alcohol and Drug Abuse Patient Records regulations: The Federal rules restrict any use of the information to criminally investigate or prosecute any alcohol or drug abuse patient.[facility] the event this information is protected by the Federal Confidentiality of Alcohol and Drug Abuse Patient Records regulations: The Federal rules restrict any use of the information to criminally investigate or prosecute any alcohol or drug abuse patient.[facility] the event this information is protected by the Federal Confidentiality of Alcohol and Drug Abuse Patient Records regulations: The Federal rules restrict any use of the information to criminally investigate or prosecute any alcohol or drug abuse patient.[facility] the event this information is protected by the Federal Confidentiality of Alcohol and Drug Abuse Patient Records regulations: The Federal rules restrict any use of the information to criminally investigate or prosecute any alcohol or drug abuse patient.[facility] the event this information is protected by the Federal Confidentiality of Alcohol and Drug Abuse Patient Records regulations: The Federal rules restrict any use of the information to criminally investigate or prosecute any alcohol or drug abuse patient.[facility] (unrecognized sect ion and content) No Status Records FoundNo Status Records FoundNo Status Records FoundNo Status Records Found INFORMATION SOURCE (unrecogn ized section and content) DATE CREATED AUTHOR 07/01/2020 [facility] DATE CREATED AUTHOR AUTHOR'S ORGANIZ ATION 05/05/2023 [facility] DATE CREATED AUTHOR AUTHOR'S ORGANIZ ATION 12/02/2023 [facility] DATE CREATED AUTHOR AUTHOR'S ORGANIZ ATION 01/09/2025 [facility] Care Teams (unrecognized sec tion and content) Team Status: Inactive Member Role Status Dates Navi Benjamin MD Attending Provider Active Team Status: Inactive Member Role Status Dates Avi Cárdenas BLADE FILER, BLADE FILER-C Attending Provider Active Transport Conductor Relationship Specialty Start Date End Date Avi Cárdenas, BLIND EYELETTER.CARE TEAM COORDINATOR SCHEDULER [address] [place], [place] [id number] PCP - General Family Medicine 06/29/20 Transport Conductor Relationship Specialty Start Date End Date Avi Cárdenas, BLIND EYELETTER.CARE TEAM COORDINATOR SCHEDULER [address] [place] [address] PCP - General Family Medicine 06/29/20 Transport Conductor Relationship Specialty Start Date End Date Avi Cárdenas, BLIND EYELETTER.CARE TEAM COORDINATOR SCHEDULER [address] [facility] [place] [address] PCP - General Family Medicine 06/29/20 Transport Conductor Relationship Specialty Start Date End Date Avi Cárdenas, BLIND EYELETTER.CARE TEAM COORDINATOR SCHEDULER [address] [facility] [place] [address] PCP - General Family Medicine 06/29/20 Transport Conductor Relationship Specialty Start Date End Date Avi Cárdenas, BLIND EYELETTER.CARE TEAM COORDINATOR SCHEDULER [address] [place] [address] PCP - General Family Medicine 06/29/20 Transport Conductor Relationship Specialty Start Date End Date Avi Cárdenas, BLIND EYELETTER.CARE TEAM COORDINATOR SCHEDULER [address] [place] [address] PCP - General Family Medicine 06/29/20 Transport Conductor Relationship Specialty Start Date End Date Avi Cárdenas, BLIND EYELETTER.CARE TEAM COORDINATOR SCHEDULER [address] [place], [place] [id number] PCP - General Family Medicine 06/29/20 Transport Conductor Relationship Specialty Start Date End Date Avi Cárdenas, BLIND EYELETTER.CARE TEAM COORDINATOR SCHEDULER [address] [place] [address] PCP - General Family Medicine 06/29/20 Transport Conductor Relationship Specialty Start Date End Date Avi Cárdenas, BLIND EYELETTER.CARE TEAM COORDINATOR SCHEDULER [address] [place] [address] PCP - General Family Medicine 06/29/20 Goals (unrecognized section and content) Goals may be documented in a n alternate sectionGoals may be documented in an alternate section Reason for Visit (unrecogniz ed section and content) Reason Comments Cardiac Rehab Eval Initial Assessment Reason Comments Cardiac Rehab Reason Comments Cardiac Rehab 30 day assessment FOR RECORDS PERTAINING TO PATIENTS WHO ARE OR HAVE BEEN ENROLLED IN A CHEMICAL DEPENDENCY/SUBSTANCEABUSE PROGRAM, SOME INFORMATION MAY BE OMITTED. This clinical summary was aggregated from multiple sources. Caution should be exercised in using it in the provision of clinical care. This summary normalizes information from multiple sources, and as a consequence, information in this document may materially change the coding, format and clinical context of patient data. In addition, data may be omitted in some cases. CLINICAL DECISIONS SHOULD BE BASED ON THE PRIMARY CLINICAL RECORDS. [employer] provides no warranty or guarantee of the accuracy or completeness of information in this document.
[2025-06-02 22:10] LABS: Hematocrit 35.6 % (40-54); Hemoglobin 12.3 g/dL (13.0-16.5); Immature Granulocytes Count 0.010 X10^3/uL (0.0-0.0); Mean Corp Hgb Conc 34.6 g/dL (32-36); Mean Corpuscular Volume 97.3 fL (80-94); Mean Platelet Vol. 9.4 fl (6.2-12.0); NRBC Flagged by Analyzer 0 % (0-5); Platelet Count 227 K/mm3 (150-450); RBC Distribution Width CV 11.9 % (11.6-14.6); RBC Distribution Width SD 42.2 fl (35.1-43.9); Red Blood Count 3.66 M/mm3 (4.6-6.2); White Blood Count 4.8 K/mm3 (4.4-11.0)
[2025-06-02 22:51] LABS: AST(SGOT) 28 U/L (<=37); Alanine Aminotransfer ALT/SGPT 23 U/L (<=46); Albumin, Serum 4.4 g/dL (3.4-4.8); Alkaline Phosphatase 70 U/L (40-129); Anion Gap 12 (5-15); BUN 33 mg/dL (4-19); BUN/Creat Ratio 20.8 RATIO (10-20); Calcium,Total 9.2 mg/dL (7.6-11.0); Carbon Dioxide 24.2 mmol/L (21.0-32.0); Chloride 99 mmol/L (98-108); Cholesterol 138 mg/dL (<=200); Globulin 2.8 g/dL (2.2-4.2); Glucose 94 mg/dL (70-99); Low Density Lipoprotein Calc. 60 mg/dL; PSA,Total - Annual Screen 0.54 ng/mL (0.02-4.00); Potassium 4.4 mmol/L (3.3-5.1); Triglycerides 135 mg/dL; Very Low Density Lipoprotein 27 mg/dL (5-40); cholesterol:hdl ratio screen 2.70
== END | disposition home or self-care (01) ==
LOC: LABSPEC 21:48
PROVIDERS: Visit Provider Nurse Practitioner
DX: I10 Essential (primary) hypertension (principal); E78.5 Hyperlipidemia, unspecified; K21.9 Gastro-esophageal reflux disease without esophagitis; F41.9 Anxiety disorder, unspecified; Z12.5 Encounter for screening for malignant neoplasm of prostate
CPT/HCPCS: 80053; 80061; 84153; 85025; G0103